=== PATIENT | female | born 1990 | race Caucasian/White ===

== ENCOUNTER 2020-12-05 10:24 | Emergency (ER) | payer OTHER, SELFPAY ==
[2020-12-05 10:29] VITALS: BP 137/85; PULSE 96; RESP 14; TEMP 36.9; O2SAT 99
--- NOTE | 2020-12-05 10:38 | DI.RAD.S_ITS ---
PROCEDURE: XR HAND RT MIN 3V INDICATIONS: can do combined- dog bite to right wrist and hand, 4th finge TECHNIQUE: 3 views of the hand(s) acquired. COMPARISON: None. FINDINGS: Bones: No fractures or dislocations. Carpal bones are normally aligned. No suspicious bony lesions. Soft tissues: No suspicious soft tissue calcifications. IMPRESSION: No gross acute right hand fracture or dislocation. No radiopaque foreign body is seen. Dictated by: Parviz Martinez M.D. on 12/05/2020 at 11:21 Approved by: Parviz Martinez M.D. on 12/05/2020 at 11:26
--- NOTE | 2020-12-05 11:38 | ED.ANIMALBIT ---
HPI - Animal Bite General Chief Complaint: Animal Bite Stated Complaint: bit by dog today, right hand Time Seen by Provider: 12/05/20 11:30 History of Present Illness HPI narrative: 30-year-old female nonsmoker with noncontributory medical history presents with a chief complaint of a dog bite on her right hand. She has multiple small punctures that were suffered as a consequence of trying to help her dog but was choking on some dog food. She reached into his mouth and startle him and he bit down. She has got full range of motion and strength but does have some tingling in her fingers. Her tetanus will need to be updated. The dog has been acting appropriate otherwise and shots are up-to-date Related Data Previous Rx's Medication Instructions Recorded doxycycline hyclate 100 mg tablet 100 mg PO BID #20 tab 12/05/20 metronidazole 500 mg tablet 500 mg PO Q8H #30 tab 12/05/20 Allergies Allergy/AdvReac Type Severity Reaction Status Date / Time amoxicillin Allergy Unknown Verified 12/05/20 10:34 Review of Systems Review of Systems Narrative: GENERAL: Denies chills, fatigue, malaise, fever, sweats. HEENT: Denies sinus pain, ear pain, sore throat, difficulty swallowing, dizziness. RESPIRATORY: Denies dyspnea, cough, wheezing, hemoptysis, sputum. CARDIOVASCULAR: Denies chest pain, palpitations, orthopnea, edema, GASTROINTESTINAL: Denies nausea, vomiting, abdominal pain, diarrhea, constipation, melena. : Denies dysuria, frequency, incontinence, hematuria, urinary retention. MUSCULOSKELETAL: See HPI SKIN: See HPI NEUROLOGIC: Denies weakness, headache, numbness, change in speech, confusion, seizures, incoordination. PSYCHIATRIC: No concerning psychosocial issues. 12 point review of systems is negative except for those stated above Patient History Social History Smoking Status: Never smoker Smoking Status: Never smoker alcohol intake frequency: 0-2 drinks per day Substance Use Type: does not use Exam Narrative Exam Narrative: GEN: AOx3 and in mild distress EYES: Pupils are equal, round, and reactive to light and accommodation. Extraoccular muscles are intact bilaterally. There is no subconjunctival hemorrhage or exudate. CHEST: Lungs are clear to auscultation bilaterally and free of wheezes, rales, or rhonchi. Heart rate is regular rhythm, there are no murmurs, clicks, rubs, or gallops. There is no chest wall tenderness. ABD: Abdomen is soft and nontender. There is no guarding or rebound. Bowel sounds are normal in all 4 quadrants. There is no mass or organomegaly. EXT: Full painless ROM of all extremities with no loss of sensation or strength. SKIN: 3 small 0.25 cm punctures, 1 overlying the dorsum of the wrist, 1 on the thenar eminence and 1, the smallest of which on the dorsum of R ring finger proximal to PIP. No active bleeding. Warm, pink, and dry. No erythema or rash Initial Vital Signs Initial Vital Signs: Vital Signs Temperature 98.4 F 12/05/20 10:29 Pulse Rate 96 H 12/05/20 10:29 Respiratory Rate 14 12/05/20 10:29 Blood Pressure 137/85 12/05/20 10:29 Pulse Oximetry 99 12/05/20 10:29 Course Orders Ordered: ED Orders 12/05/20 10:38 XR wrist RT min 3V Stat Discontinued Medications Diphtheria/Tetanus/Acell Pertussis (Tet,Diph,Pertuss(Acell),Vac/Pf 0.5 Ml Syringe) 0.5 ml IM .ONCE ONE Stop: 12/05/20 11:38 Last Admin: 12/05/20 11:56 Dose: 0.5 ml Documented by: Lidocaine/Sodium Bicarbonate (Lido 1%/Sod Bicarb 8.4% (10ml) 10 Ml Syringe) 10 ml INJ NOW ONE Stop: 12/05/20 11:51 Last Admin: 12/05/20 11:56 Dose: 10 ml Documented by: Vital Signs Vital signs: Vital Signs - 8 hr 12/05/20 10:29 Temperature 98.4 F Pulse Rate 96 H Respiratory Rate 14 Blood Pressure 137/85 Pulse Oximetry 99 MDM - Animal Bite Imaging Data Extremity x-ray #1: Radiologist's Impression: [address] [id number] ReportSigned Patient: Saloni Hoover JMR#: [id number]: 1990Acct:[id number]/Sex: 30 / FDate of Service: 12/05/20Loc: EDAccession Number: [id number] Procedure: XR wrist RT min 3V Ordering Provider: Godfrey Rodriguez D.O. PROCEDURE: XR HAND RT MIN 3V INDICATIONS: can do combined- dog bite to right wrist and hand, 4th finge TECHNIQUE: 3 views of the hand(s) acquired. COMPARISON: None. FINDINGS: Bones: No fractures or dislocations. Carpal bones are normally aligned. No suspicious bony lesions. Soft tissues: No suspicious soft tissue calcifications. IMPRESSION: No gross acute right hand fracture or dislocation. No radiopaque foreign body is seen. Dictated by: Parviz Martinez M.D. on 12/05/2020 at 11:21 Approved by: Parviz Martinez M.D. on 12/05/2020 at 11:26 Discharge Plan Departure Patient Disposition: Home Clinical Impression: Bite by animal Instructions: DI for Animal Bites Activity Restrictions/Additional Instructions: *You have been diagnosed with [dog bite with laceration] *What to do: *Please continue to take your regular medications as directed. [x ] New medication prescriptions sent to your pharmacy: [[facility]] [ ] New medication written as a paper prescription [ ] No new medications given *Please follow up with your primary care provider in 2-3 days, call for an appointment. Let them know you were seen in the Emergency Department and that we ask that you be seen in follow up. We will electronically transmit a record of today's note if your PCP is in our system *If you do not have a primary care provider please contact the [facility] Resource line at [phone]. They will ask some questions about your medical history and help get you set up with a doctor in the community. *Return to Emergency Department if you should have any new, worsening or concerning symptoms, such as [fever greater than 101 F, shaking chills, worsening pain, persistent vomiting or other bothersome symptoms] Prescriptions: New doxycycline hyclate 100 mg tablet 100 mg PO BID Qty: 20 RF: 0 metronidazole 500 mg tablet 500 mg PO Q8H Qty: 30 RF: 0
[2020-12-05] MEDS: TET,DIPH,PERTUSS(ACELL),VAC/PF 0.5 ML SYRINGE IM (11:56)
[2020-12-05] MEDS: LIDO 1%/SOD BICARB 8.4% (10ML) 10 ML SYRINGE INJ (11:56)
== END 2020-12-05 12:15 | disposition home or self-care (01) ==
PROVIDERS: Emergency Provider Emergency Medicine
DX: S61.451A Open bite of right hand, initial encounter (principal); W54.0XXA Bitten by dog, initial encounter; Z23 Encounter for immunization
CPT/HCPCS: 73110; 90471; 99283; 99284; 90715

== ENCOUNTER 2022-09-13 18:00 | Emergency (ER) | payer BC, SELFPAY ==
[2022-09-13 18:34] VITALS: BP 144/93; PULSE 73; RESP 16; TEMP 36.9; O2SAT 100; BMI 32.6
[2022-09-13 18:50] LABS: Add Manual Diff / Slide Review NO; Basophils Absolute Auto 100 /uL (0-100); Basophils Percent Auto 0.8 % (0-2); Eosinophils Absolute Auto 200 /uL (0-450); Eosinophils Percent Auto 2.6 % (2-4); Hematocrit 36.4 % (36-46); Hemoglobin 12.3 g/dL (12.0-16.0); Lymphocytes Absolute Auto 3800 /uL (1100-4500); Mean Corpuscular HGB Conc 33.9 % (30-36); Mean Corpuscular Hemoglobin 30.4 PG (26-34); Mean Corpuscular Volume 89.8 fL (80-100); Monocytes Absolute Auto 400 /uL (0-900); Monocytes Percent Auto 4.9 % (3-14); Neutrophils Absolute Auto 4300 /uL (1500-7000); Neutrophils Percent Auto 48.7 % (50-75); Platelet Count 238 X10^3/uL (150-400); Red Blood Cell Count 4.05 X10^6/uL (4.0-5.2); Red Cell Distribution Width 12.3 % (11.6-14.8); White Blood Cell Count 8.9 X10^3/uL (4.5-11.0)
[2022-09-13 19:20] LABS: BUN Creatinine Ratio 15.9 (6-22); Blood Urea Nitrogen 13 mg/dL (7-17); Calcium 8.9 mg/dL (8.4-10.2); Carbon Dioxide 26 mmol/L (22-32); Chloride 104 mmol/L (98-107); Estimated Glomerular Filt Rate > 60 mL/min (>60); Glucose 104 mg/dL (70-100); HEMOLYSIS < 15 (0-50); Potassium 3.8 mmol/L (3.4-5.1); Sodium 138 mmol/L (137-145)
[2022-09-13 21:14] VITALS: PULSE 64; O2SAT 96
[2022-09-13 21:16] VITALS: BP 115/85; PULSE 66; RESP 16; O2SAT 100
[2022-09-13 22:29] VITALS: BP 126/70; PULSE 89; O2SAT 100
[2022-09-13 22:30] VITALS: RESP 18; O2SAT 99
== END 2022-09-13 22:44 | disposition left against medical advice (07) ==
PROVIDERS: Emergency Provider Emergency Medicine
DX: N93.9 Abnormal uterine and vaginal bleeding, unspecified (principal)
CPT/HCPCS: 36415; 80048; 81025; 85025; 99283

== ENCOUNTER → 2023-05-08 13:39 | Outpatient (CLI) | payer BC, MEDICAID, OTHER, SELFPAY ==
[2023-05-08 14:40] LABS: Influenza A - CEPHEID Flu A NEGATIVE (NEGATIVE); Influenza B - CEPHEID Flu B NEGATIVE (NEGATIVE); Respiratory Syncytial Virus Negative (Negative)
[2023-05-08 14:42] LABS: COVID-19 CEPHEID 4-PLEX PCR Negative (Negative)
== END ==
PROVIDERS: PCP Nurse Practitioner Family; Visit Provider Nurse Practitioner Family
DX: R05.1 Acute cough (principal)
CPT/HCPCS: 0241U

== ENCOUNTER → 2023-05-08 14:03 | Outpatient (CLI) | payer OTHER, MEDICAID, SELFPAY ==
--- NOTE | 2023-05-08 14:09 | DI.RAD.S_ITS ---
PROCEDURE: XR CHEST 2V INDICATIONS: Cough TECHNIQUE: 2 views of the chest were acquired. COMPARISON: None. FINDINGS: Surgical changes and devices: None. Lungs and pleura: Right mid lung field opacity. No pleural effusions or pneumothorax. Mediastinum: Mediastinal contours are normal. Heart size is normal. Bones and chest wall: No suspicious bony abnormalities. Soft tissues appear unremarkable. IMPRESSION: Right mid lung field opacity consistent with pneumonia. Recommend follow-up radiograph to resolution. Dictated by: Vince Neely M.D. on 05/08/2023 at 15:35 Approved by: Vince Neely M.D. on 05/08/2023 at 15:35
== END ==
PROVIDERS: PCP Nurse Practitioner Family; Referring Provider Nurse Practitioner Family; Visit Provider Nurse Practitioner Family
DX: R05.9 Cough, unspecified (principal)
CPT/HCPCS: 0241U; 71046

== ENCOUNTER → 2023-07-31 22:06 | Outpatient (ROUT) | payer OTHER, MEDICAID, SELFPAY ==
[2023-08-07 12:43] LABS: Percent Free Testosterone 2.42 % (0.50-2.80); Testosterone Free 0.61 ng/dL (0.10-0.85); Testosterone Total 25.3 ng/dL (10.0-55.0)
[2023-08-07 21:36] LABS: Anti Mullerian Hormone 3.97 ng/mL (.)
== END ==
PROVIDERS: PCP Nurse Practitioner Family; Visit Provider Advanced Practice Midwife
DX: E28.2 Polycystic ovarian syndrome (principal); Z13.228 Encounter for screening for other metabolic disorders
CPT/HCPCS: 82397; 84402; 84403

== ENCOUNTER → 2024-02-24 11:04 | Outpatient (CLI) | payer MEDICAID, OTHER, SELFPAY ==
--- NOTE | 2024-02-24 | DI.US.S_ITS ---
PROCEDURE: US OB >= 14 WEEKS FETUS INDICATIONS: ANATOMY SCAN OUTSIDE/PRIOR DATING DATA: Last menstrual period (LMP): 09/17/2023. LMP-based estimated date of delivery (CLARKE): 06/23/2024. The calculations are made using the clinical CLARKE of 07/04/2024. TECHNIQUE: Real-time scanning was performed of the fetus, with image documentation and biometric measurements. Endovaginal scanning: Not performed COMPARISON: None. FINDINGS: General: A single living intrauterine gestation is present. Presentation: Vertex. Placenta: Placental position is posterior, without previa. Amniotic fluid index: 13.7 cm, normal range is 5-24 cm. Single deepest vertical pocket is 4.4 cm. heart rate: 147 beats per minute. Maternal cervical canal: 4.9 cm long. Normal lower limit is 2.5 cm. biometrics: Biparietal diameter: 5.2 cm, 21 weeks 5 days Head circumference: 18.6 cm, 20 weeks 6 days Abdominal circumference: 17.6 cm, 22 weeks 4 days Femur length: 3.9 cm, 22 weeks 4 days Clinically estimated gestational age: 21 weeks 2 days Composite gestational age from present scan: 22 weeks 0 days Estimated weight and percentile: 495 g, 92 percentile Anatomic survey: Neuro: Ventricles are non-dilated at less than 10 mm. Cisterna magna is normal at 3-11 mm. Cerebellum is normal in size and morphology. Nuchal skin fold: Normal at less than 6 mm between 14-21 weeks gestational age. Face: Nose and lips, facial profile are normal. Spine: No evidence for spina bifida. Heart: 4-chambered heart is present, with normal ventricular outflow tracts. Diaphragm: Diaphragm is intact. Stomach: Left-sided stomach is present. Kidneys: No hydronephrosis. Normal is less than 5 mm in 2nd trimester, less than 7 mm in 3rd trimester. Cord: 3-vessel cord has orthotopic insertion. Bladder: Normal in size. Extremities: All 4 extremities identified. IMPRESSION: 1. Caldera living intrauterine at 22 weeks 0 days based on today's ultrasound. Fetus is in the 92 percentile for weight. 2. Normal placenta and amniotic fluid. 3. Normal and complete anatomic survey. We strive to produce accurate, complete, and clear reports of imaging services. To assist us in improving patient care, this report was composed using standard report templates and voice recognition software. Therefore, it may contain abnormal punctuation, insertions and/or omissions. Occasional wrong-word or sound-alike substitutions may occur. Though we review the report and make efforts to correct it, we do recommend that the report be read carefully in proper context to recognize any text inaccuracies. Dictated by: Angelito Perez M.D. on 02/24/2024 at 23:24 Approved by: Angelito Perez M.D. on 02/24/2024 at 23:28
== END ==
PROVIDERS: PCP Nurse Practitioner Family; Referring Provider Nurse Practitioner Obstetrics & Gynecology; Visit Provider Nurse Practitioner Obstetrics & Gynecology
DX: Z34.92 Encounter for supervision of normal pregnancy, unspecified, second trimester (principal); Z3A.22 22 weeks gestation of pregnancy
CPT/HCPCS: 76811

== ENCOUNTER 2024-06-26 12:02 | Outpatient (CLI) | payer BC, SELFPAY ==
--- NOTE | 2024-06-26 13:16 | PM.OBTRLD ---
Visit Information Visit Information Date of evaluation: 06/26/24 Primary OB Provider: Gracy New On-call OB Provider: Gracy New Reason for Evaluation: Yes non-stress test non-stress test reason: hypertension/pre-eclampsia Comments/Additional reasons for admission: 33YO @ 38wks 6 days by LMP concordant with 7wk US referred for clinic for evaluation of elevated BP in clinic at routine OB appointment. +FM. No cramping, vaginal bleeding, leaking of fluid, vision changes, RUQ pain or increased edema. A mild headache, typical for her is developing right now, but she hasn't eaten or taken anything for it. Vital Signs Vital Signs: Serial BPs: 139/82, 125/80, 128/81, 118/78, 118/78. 113/75 HR 85, T 37.1C Temporal PFSH Medical History (Updated 06/26/24 @ 15:09 by Gracy New CNM) Depression GERD (gastroesophageal reflux disease) Family History (Updated 06/26/24 @ 13:25 by Gracy New CNM) Mother Cancer Social History Smoking Status: Never smoker Review of Systems Review of Systems ROS: Yes All systems reviewed with the patient and are negative except as otherwise documented Exam Vital Signs (past 8 hours): see above Chest Chest: normal inspection of the chest Resp Effort & Inspection: normal respiratory effort and able to speak in complete sentences Cardio Palpation: normal PMI Rate: regular rate Rhythm: regular rhythm Presentation: vertex Objective Labs 06/26/24 13:14 06/26/24 13:14 Evaluation Evaluation Baseline heart rate: 135 Variability: Moderate (11-25) monitor accelerations: Present Monitor Decelerations: Absent Contraction Frequency (minutes): 4 Uterine Contraction Intensity: Mild (not felt by Saloni) Category of Tracing: Reactive Comments: CE Deferrd, not inlabor Diagnosis, Plan/Disposition Final Diagnosis (1) Elevated blood pressure reading without diagnosis of hypertension: Status: Acute (2) Proteinuria affecting in third trimester: Status: Acute Plan/Disposition Plan: Likely brewing preeclampsia, but given normotensive BPs today, recommend close monitoring. Discharge to home with routine precautions. RTC in 3 days for close interval BP check. OB Disposition: home
[2024-06-26 13:47] LABS: Add Manual Diff / Slide Review NO; Basophils Absolute Auto 0 /uL (0-100); Basophils Percent Auto 0.2 % (0-2); Eosinophils Absolute Auto 100 /uL (0-450); Eosinophils Percent Auto 0.7 % (2-4); Hematocrit 32.3 % (36-46); Hemoglobin 10.7 g/dL (12.0-16.0); Lymphocytes Absolute Auto 2300 /uL (1100-4500); Lymphocytes Percent Auto 19.9 % (25-40); Mean Corpuscular HGB Conc 33.1 % (30-36); Mean Corpuscular Hemoglobin 29.5 PG (26-34); Mean Corpuscular Volume 88.9 fL (80-100); Monocytes Absolute Auto 700 /uL (0-900); Monocytes Percent Auto 6.1 % (3-14); Neutrophils Absolute Auto 8500 /uL (1500-7000); Neutrophils Percent Auto 73.1 % (50-75); Platelet Count 177 X10^3/uL (150-400); Red Blood Cell Count 3.63 X10^6/uL (4.0-5.2); White Blood Cell Count 11.7 X10^3/uL (4.5-11.0)
[2024-06-26 14:27] LABS: Alanine Aminotransferase 36 IU/L (<35); Albumin 3.6 g/dL (3.5-5.0); Albumin Globulin Ratio 1.2 (1.0-2.8); Alkaline Phosphatase 135 U/L (38-126); Aspartate Aminotransferase 36 IU/L (14-36); BUN Creatinine Ratio 16.7 (6-22); Bilirubin Total 0.3 mg/dL (0.2-1.3); Blood Urea Nitrogen 11 mg/dL (7-17); Calcium 9.8 mg/dL (8.4-10.2); Carbon Dioxide 19 mmol/L (22-32); Chloride 107 mmol/L (98-107); Estimated Glomerular Filt Rate > 60 mL/min (>60); Glucose 86 mg/dL (70-100); HEMOLYSIS < 15 (0-50); Potassium 4.3 mmol/L (3.4-5.1); Sodium 133 mmol/L (137-145); Total Protein 6.6 g/dL (6.3-8.2); Uric Acid 4.4 mg/dL (2.5-6.2)
[2024-06-26 15:01] LABS: Appearance Urine UA SL CLOUDY; Bilirubin Urine UA NEGATIVE (NEGATIVE); Color Urine UA YELLOW; Glucose Urine UA NEGATIVE (Negative); Ketones Urine UA NEGATIVE (NEGATIVE); Leukocyte Esterase Urine UA NEGATIVE (NEGATIVE); Nitrite Urine UA NEGATIVE (Negative); Occult Blood Urine UA NEGATIVE (Negative); Protein Urine UA NEGATIVE (Negative); Urobilinogen Urine UA 0.2 E.U./dL (0.2)
[2024-06-26 15:04] LABS: Creatinine Urine Random 35.14 mg/dL; Protein (Total) Urine Random 17 mg/dL (0-12); Protein Creatinine Ratio Urine 0.48 GRAM/24H
== END 2024-06-26 14:00 | disposition home or self-care (01) ==
LOC: LABOR 12:33 → OB 06-29 07:09
PROVIDERS: Nurse Practitioner Obstetrics & Gynecology; Referring Provider Advanced Practice Midwife; Visit Provider Advanced Practice Midwife
DX: O12.13 Gestational proteinuria, third trimester (principal); O26.893 Other specified pregnancy related conditions, third trimester; R03.0 Elevated blood-pressure reading, without diagnosis of hypertension; Z3A.38 38 weeks gestation of pregnancy
CPT/HCPCS: 36415; 59025; 80053; 81003; 84550; 85025; G0378; G0379

== ENCOUNTER 2024-06-28 13:20 | Inpatient (IN) | payer BC, SELFPAY ==
[2024-06-28 14:05] LABS: Add Manual Diff / Slide Review NO; Basophils Absolute Auto 100 /uL (0-100); Basophils Percent Auto 0.9 % (0-2); Eosinophils Absolute Auto 100 /uL (0-450); Eosinophils Percent Auto 0.9 % (2-4); Hematocrit 32.4 % (36-46); Hemoglobin 10.6 g/dL (12.0-16.0); Lymphocytes Absolute Auto 2400 /uL (1100-4500); Mean Corpuscular HGB Conc 32.8 % (30-36); Mean Corpuscular Hemoglobin 29.2 PG (26-34); Mean Corpuscular Volume 88.8 fL (80-100); Monocytes Absolute Auto 800 /uL (0-900); Monocytes Percent Auto 6.2 % (3-14); Neutrophils Absolute Auto 9200 /uL (1500-7000); Platelet Count 187 X10^3/uL (150-400); Red Blood Cell Count 3.65 X10^6/uL (4.0-5.2); Red Cell Distribution Width 13.1 % (11.6-14.8); White Blood Cell Count 12.6 X10^3/uL (4.5-11.0)
[2024-06-28 14:10] LABS: Creatinine Urine Random 42.52 mg/dL; Protein (Total) Urine Random 14 mg/dL (0-12); Protein Creatinine Ratio Urine 0.32 GRAM/24H
[2024-06-28 14:17] VITALS: BP 132/90
[2024-06-28 14:17] LABS: Alanine Aminotransferase 34 IU/L (<35); Albumin 3.6 g/dL (3.5-5.0); Albumin Globulin Ratio 1.2 (1.0-2.8); Alkaline Phosphatase 135 U/L (38-126); Aspartate Aminotransferase 30 IU/L (14-36); BUN Creatinine Ratio 15.9 (6-22); Bilirubin Total 0.3 mg/dL (0.2-1.3); Blood Urea Nitrogen 11 mg/dL (7-17); Calcium 9.4 mg/dL (8.4-10.2); Carbon Dioxide 18 mmol/L (22-32); Chloride 107 mmol/L (98-107); Estimated Glomerular Filt Rate > 60 mL/min (>60); Glucose 106 mg/dL (70-100); HEMOLYSIS < 15 (0-50); Potassium 4.4 mmol/L (3.4-5.1); Sodium 133 mmol/L (137-145); Total Protein 6.6 g/dL (6.3-8.2); Uric Acid 4.5 mg/dL (2.5-6.2)
--- NOTE | 2024-06-28 14:57 | PM.OBHP.1 ---
OB HPI Date/Time Date of admission: 06/28/24 Date Patient Seen: 06/28/24 Time Patient Seen: 15:04 History of Present Condition Chief complaint: NST : 1 Para: 0 Narrative: Saloni Salinas is a 33 year old female @ 39wks 1 day by conception dating concordant with 9wk US presenting for evaluation of headache. Was seen in clinic 2 days ago for routine care with elevated BP, sent to triage with reactive NST and normotensive serial BPs, but labs significantly trending towards preeclampsia. Headache did not improve for 1 hour after taking 1 gram of Tylenol, but is improving now at the 2 hour liliana. +FM. Rare, mild cramping. No vaginal bleeding or leaking of fluid. Otherwise uncomplicated care with CNMs on low dose ASA for prophylaxis since 12 weeks EGA. Was planning low intervention . is present and supportive. Indications Indication for induction OB: gestational HTN/pre-eclampsia History of Present care: good care, initiated at week # (5), number of visits (12) and pounds weight gain (24) Dating criteria: based on 1st trimester US only (and conception date) Ultrasounds: normal 1st trimester US and normal mid trimester US Obstetrical complications: preeclampsia Medical complications: none Preadmission Labs Blood type: A (+) positive -: Antibody screen: negative, Cystic fibrosis screen: negative (Fragile X- intermediate, SMA- increased risk), GBS status: negative, HBsAG: negative, HIV: negative and RPR/VDLR: negative -: Chlamydia screen: not detected and Gonorrhea screen: not detected -: Rubella: immune and Varicella: immune HCT: 35.9 HCAB: negative Cell-free DNA: Negative x3 1 hr GTT: 92 Evaluation Evaluation Baseline heart rate: 140 Variability: Moderate (11-25) monitor accelerations: Present Monitor Decelerations: Absent Contraction Frequency (minutes): 0 Category of Tracing: Reactive Dilation (cm): 0 Effacement (%): 60 Dilation: Closed Effacement: 60-70% station: -3 Position of cervix: posterior Consistency: soft Coleman score: 4 PFSH Medical History Depression GERD (gastroesophageal reflux disease) Family History Mother Cancer Social History Smoking Status: Never smoker Meds Home Medications and Allergies Home Medications Medication Instructions Recorded Confirmed Type azithromycin 250 mg tablet See Rx Instructions PO .COMPLEX #6 05/08/23 Rx tabs benzonatate 200 mg capsule 200 mg PO BID PRN cough #28 caps 05/08/23 05/08/23 Rx Allergies Allergy/AdvReac Type Severity Reaction Status Date / Time amoxicillin Allergy Unknown Verified 05/08/23 13:35 Review of Systems Review of Systems ROS: Yes All systems reviewed with the patient and are negative except as otherwise documented OB Exam Vital signs Blood Pressure: 137/94 Pulse Rate: 96 Temperature: 98.1 F Resp Effort & Inspection: normal respiratory effort and able to speak in complete sentences Auscultation: clear to auscultation bilaterally Cardio Rate: regular rate Rhythm: regular rhythm Heart Sounds: S1 normal and S2 normal Presentation: vertex Objective Labs 06/28/24 13:50 06/28/24 13:50 Labs: Laboratory Results - last 24 hr 06/28/24 06/28/24 13:30 13:50 WBC 12.6 H RBC 3.65 L Hgb 10.6 L Hct 32.4 L MCV 88.8 MCH 29.2 MCHC 32.8 RDW 13.1 Plt Count 187 Neut % (Auto) 73.0 Lymph % (Auto) 19.0 L Candler % (Auto) 6.2 Eos % (Auto) 0.9 L Baso % (Auto) 0.9 Neut # (Auto) 9200 H Lymph # (Auto) 2400 Candler # (Auto) 800 Eos # (Auto) 100 Baso # (Auto) 100 Sodium 133 L Potassium 4.4 Chloride 107 Carbon Dioxide 18 L BUN 11 Creatinine 0.69 Estimated GFR > 60 BUN/Creatinine Ratio 15.9 Glucose 106 H Uric Acid 4.5 Calcium 9.4 Total Bilirubin 0.3 AST 30 ALT 34 Alkaline Phosphatase 135 H Total Protein 6.6 Albumin 3.6 Globulin 3.0 Albumin/Globulin Ratio 1.2 U Random Total Protein 14 H Urine Creatinine 42.52 Protein/Creatinin Ratio 0.32 Assessment and Plan Assessment and Plan Assessment and Plan narrative: A: Term nullipara IOL for preeclampsia w/o severe features Cervical ripening indicated No indication for antibiotics Cat I FHR P: Given resolution of headache while in triage and stable preeclampsia labs, recommend IOL for preeclampsia, but no indication for MgSO4 at this time. Discussed patient and plan of care with OB back-up/ who is in agreement. Admit, with routine labor orders. Cervical ripening with misoprostol x 2 doses, then reassess in 8 hours. Labor support, PRN. Time-Based Coding :: [TOTAL MINUTES] spent with patient and on the chart (including review of chart, obtaining history, exam, reviewing outside data, placing orders, documenting exam and treatment plan, and counseling patient) on [DATE].
[2024-06-28 15:25] VITALS: BP 137/94; PULSE 96; TEMP 36.7
[2024-06-28] MEDS: miSOPROStoL 25 MCG TABLET 50 MCG PO ×3 (15:30→23:29)
--- NOTE | 2024-06-28 23:08 | PM.OBPNLAB ---
Date/Time Date Patient Seen: 06/28/24 Time Patient Seen: 23:08 Pain Control Pain control: tolerating well Comments: Feeling mild, irregular cramping after 2 doses of misoprostol. Has been able to shower and get some rest. Headache completely resolved around 8pm. VS: BP 129/81, HR 83bpm, T 36.3C Temporal Pelvic Exam Dilation (cm): 0 Effacement (%): 60 station: -3 Amniotic membrane status: Intact Comments: CE deferred, not feeling significant contractions. Contractions Contraction frequency (min): 3 Contraction duration (min): 1 Contraction intensity: Mild Status status: Category l Heart Rate Baseline: 140 Monitor Accelerations: Present Monitor Decelerations: Absent Monitor Variability: Moderate Assessment and Plan Assessment: induction ongoing Plan: continuous present management Comments: Continue misoprostol x2 more doses overnight. Encourage rest. Reassess in AM. Will consider Matias balloon at next check, if further cervical ripening is indicated.
[2024-06-29] MEDS: miSOPROStoL 25 MCG TABLET 50 MCG PO ×2 (03:28→07:34)
--- NOTE | 2024-06-29 07:18 | PM.OBPNLAB ---
Date/Time Date Patient Seen: 06/29/24 Time Patient Seen: 07:19 Pain Control Pain control: tolerating well Comments: Saloni got some sleep overnight. Continuing to feel irregular, mild cramping. No vaginal bleeding or leaking of fluid. VS: BP 103/60, HR 74, T 36.3C Temporal. Pelvic Exam Dilation (cm): 0 Effacement (%): 75 station: -2 Amniotic membrane status: Intact Contractions Contraction frequency (min): 2 Contraction duration (min): 1 Contraction intensity: Mild Status status: Category l Heart Rate Baseline: 140 Monitor Accelerations: Present Monitor Decelerations: Absent Monitor Variability: Moderate Assessment and Plan Assessment: induction ongoing Plan: continuous present management Comments: Continue oral misoprostol x2 doses (6 total doses). Encouraged balanced rest and upright movement. Reassess in 4-8 hours or sooner, PRN.
--- NOTE | 2024-06-29 12:12 | PM.OBPNLAB ---
Date/Time Date Patient Seen: 06/29/24 Time Patient Seen: 12:12 Pain Control Pain control: tolerating well Comments: Woke up from nap around 1000. Notified RN at 1018 of sensation of two pops, leaking clear fluid. Quickly began feeling stronger contractions low in abdomen that are regular and painful, occurring every 2-5minutes. Considering an epidural soon. VS-BP 125/82, HR 81, Temp 36.2C, O2 sat 100% Pelvic Exam Dilation (cm): 2 Effacement (%): 90 station: -2 Amniotic membrane status: Leaking (clear) Contractions Monitor mode: External Contraction frequency (min): 2 (1-5) Contraction duration (min): 60 (60-70) Contraction pattern: Regular Contraction intensity: Moderate Status status: Category l Heart Rate Baseline: 140 Monitor Accelerations: Present Monitor Decelerations: Absent Monitor Variability: Moderate Assessment and Plan Assessment: induction ongoing (Approaching active labor) Plan: continuous present management Comments: IV start now, repeat preeclampsia panel w/IV start Epidural when requested Plan to recheck cervix in 4-6 hours or sooner, PRN.
[2024-06-29] MEDS: LACTATED RINGERS 1,000 ML 100 ML IV ×2 (12:34→15:40)
[2024-06-29 13:02] LABS: Add Manual Diff / Slide Review NO; Basophils Absolute Auto 0 /uL (0-100); Basophils Percent Auto 0.2 % (0-2); Eosinophils Absolute Auto 100 /uL (0-450); Eosinophils Percent Auto 0.7 % (2-4); Hematocrit 32.6 % (36-46); Hemoglobin 10.7 g/dL (12.0-16.0); Lymphocytes Absolute Auto 2100 /uL (1100-4500); Lymphocytes Percent Auto 13.9 % (25-40); Mean Corpuscular HGB Conc 32.9 % (30-36); Mean Corpuscular Hemoglobin 29.3 PG (26-34); Mean Corpuscular Volume 88.9 fL (80-100); Monocytes Absolute Auto 900 /uL (0-900); Monocytes Percent Auto 6.3 % (3-14); Neutrophils Absolute Auto 11600 /uL (1500-7000); Neutrophils Percent Auto 78.9 % (50-75); Platelet Count 163 X10^3/uL (150-400); Red Blood Cell Count 3.66 X10^6/uL (4.0-5.2); Red Cell Distribution Width 13.2 % (11.6-14.8); White Blood Cell Count 14.7 X10^3/uL (4.5-11.0)
[2024-06-29 13:08] LABS: Alanine Aminotransferase 34 IU/L (<35); Albumin 3.6 g/dL (3.5-5.0); Albumin Globulin Ratio 1.2 (1.0-2.8); Alkaline Phosphatase 157 U/L (38-126); Aspartate Aminotransferase 32 IU/L (14-36); BUN Creatinine Ratio 14.5 (6-22); Bilirubin Total 0.3 mg/dL (0.2-1.3); Blood Urea Nitrogen 10 mg/dL (7-17); Calcium 9.1 mg/dL (8.4-10.2); Carbon Dioxide 18 mmol/L (22-32); Chloride 108 mmol/L (98-107); Estimated Glomerular Filt Rate > 60 mL/min (>60); Glucose 89 mg/dL (70-100); HEMOLYSIS < 15 (0-50); Potassium 4.4 mmol/L (3.4-5.1); Sodium 134 mmol/L (137-145); Total Protein 6.6 g/dL (6.3-8.2); Uric Acid 4.5 mg/dL (2.5-6.2)
--- NOTE | 2024-06-29 13:29 | PM.AN.REGBLK ---
[facility] <Wandy Tsai CRNA - Last Filed: 06/30/24 12:11> Pre-procedure Procedure: Continuous Lumbar Epidural for L&D (CSE) PMH/ROS narrative: 33yr old with h/o obsity bmi 30, anxiety and gerd. Induction for pre E ASA Class: II Labs: Hct 32.6 % (36-46) L 06/29/24 12:36 Plt Count 163 X10^3/uL (150-400) 06/29/24 12:36 Medications: Current Medications Generic Name Dose Route Start Last Admin Trade Name Freq PRN Reason Stop Dose Admin Calcium Carbonate 1,000 mg 06/28/24 14:36 Calcium Carbonate 500 Mg Tab PO Q2HR PRN Dyspepsia Carboprost Tromethamine 250 mcg 06/28/24 14:36 Carboprost 250 Mcg/Ml Ampul IM Q90M PRN Bleeding Fentanyl 100 mcg 06/28/24 14:36 Fentanyl 100 Mcg/2 Ml Inj IV Q1H PRN Pain, Severe (7-10) Oxytocin/Lactated Ringer's 30 unit in 500 mls @ 200 mls/hr 06/28/24 14:36 Oxytocin Premix IV CONT PRN Bleeding Protocol Tranexamic Acid 1,000 mg/ 100 mls @ 600 mls/hr 06/28/24 14:36 Sodium Chloride IV NOW PRN Bleeding Oxytocin/Lactated Ringer's 30 unit in 500 mls @ 2 mls/hr 06/28/24 14:45 Oxytocin Premix IV TITRATE GENNA Protocol 2 MILLIUNIT/MIN Lidocaine HCl 20 ml 06/28/24 14:36 Lidocaine 1% 20 Ml INJ INTRA-OP PRN Post Delivery Methylergonovine Maleate 0.2 mg 06/28/24 14:36 Methylergonovine 0.2 Mg Tablet PO Q6HR PRN Heavy Bleeding Methylergonovine Maleate 0.2 mg 06/28/24 14:36 Methylergonovine 0.2 Mg/Ml Vial IM NOW PRN Bleeding Mineral Oil 30 ml 06/28/24 14:36 Mineral Oil 30 Ml Udc TOP PRN PRN Version Misoprostol 800 mcg 06/28/24 14:36 Misoprostol 200 Mcg Tablet WI NOW PRN Bleeding Misoprostol 400 mcg 06/28/24 14:36 Misoprostol 200 Mcg Tablet SL NOW PRN Bleeding Misoprostol 50 mcg 06/28/24 14:41 06/29/24 07:34 Misoprostol 25 Mcg Tablet PO 50 mcg Q4H PRN Administration cervical ripening Naloxone HCl 0.2 mg 06/28/24 14:36 Naloxone 0.4 Mg/Ml Vial IV Q2MIN PRN Opiate Reversal Ondansetron HCl 4 mg 06/28/24 14:36 Ondansetron 4 Mg/2 Ml Inj IV Q4HR PRN Nausea And Vomiting Oxytocin 10 unit 06/28/24 14:36 Oxytocin 10 Unit/Ml Vial IM NOW PRN Bleeding Allergies: Allergies Allergy/AdvReac Type Severity Reaction Status Date / Time amoxicillin Allergy Unknown Verified 05/08/23 13:35 Procedure Insertion date: 06/29/24 Insertion time: 13:09 Prep/Local: 1% lidocaine (chloroprep) Interspace: L3-4 then L4-5 Patient position: sitting Needle: 17 gauge Tuohy (27G W for CSE) Loss of resistance with: saline CESIA at (cm): 6 Catheter placed at SKIN (cm): 11 Catheter in SPACE (cm): 5 Sensory level: T8 Insertion: No CSF, No Blood, No Paresthesia with insertion, No Paresthesia with injection and No Test dose reaction Initial Medications TEST DOSE time: 13:10 BOLUS DOSE time: 13:07 BOLUS DOSE (mL): 1 BOLUS DOSE med: 0.25% bupivacaine (via 27g W (CSE)) Infusion INFUSION: 0.125% bupivacaine and with fentanyl 2 mcg/mL Initial rate (mL/hr): 10 Post-procedure Anesthesia date START: 06/29/24 Anesthesia time START: 12:47 <Stevenson Watkins DO - Last Filed: 06/30/24 07:01> Infusion Subsequent interventions: 20:40 5mL 0.25% bupiv for worsening pain with contractions; now on pitocin; /-2; increased rate to 12mL/h. -RC 22:24 increased L sided pain. Catheter at 8cm at skin (from 11). Catheter pulled and replaced 22:40. Prep/drape (iodine), L3-4, lido local 1%, CESIA touhy 5cm with saline, 27g Pencan through touhy +CSF, catheter easily fed to 11cm (6cm in space). Test dose negative at 22:44 (3mL 1.5% lido with epi), infusion as above at 10mL/h after 5mL clinician bolus at 22:53. -RC 03:00 5mL 0.25% bupiv, ready to push, rate to 12 -RC Post-procedure Anesthesia date END: 06/30/24 Anesthesia time END: 04:37 Post-procedure Anesthesia Assessment: Yes CV function: HR/BP stable, Yes Resp function: RR/sat/airway adequate, Yes Post-op hydration adequate, Yes Pain control adequate, Yes Nausea & vomiting absent, Yes Temperature > 36 C, Yes Mental status appropriate and No Anesthesia complications
--- NOTE | 2024-06-29 16:35 | PM.OBPNLAB ---
Date/Time Date Patient Seen: 06/29/24 Time Patient Seen: 16:35 Pain Control Pain control: epidural Comments: Good pain relief w/epidural not feeling contractions. Able to sleep. VS: BP 125/74, HR 93, 36.7C Pelvic Exam Dilation (cm): 3 Effacement (%): 90 station: -2 Amniotic membrane status: Leaking (clear) Comments: SROM 6 hours w/out signs of infection Contractions Monitor mode: External Contraction frequency (min): 3 (3-5) Contraction duration (min): 60 (60-80) Contraction pattern: Regular Contraction intensity: Moderate Status status: Category l Heart Rate Baseline: 145 Monitor Accelerations: Present Monitor Decelerations: Absent Monitor Variability: Moderate Assessment and Plan Assessment: induction ongoing Plan: begin patient augmentation (Pitocin per protocol) Comments: Reassess in 4-6hours or as needed
[2024-06-29] MEDS: OXYTOCIN PREMIX 30 UNIT/500 ML PLAST..BAG IV (16:40)
[2024-06-29] MEDS: NALBUPHINE 20 MG/ML AMPUL 5 MG IV (18:17)
[2024-06-29] MEDS: FENT 2MCG/ML BUPIV 0.125% EPI 200 MCG/100 ML PLAST..BAG 6 MCG EPIDURAL (19:42)
[2024-06-29] MEDS: ONDANSETRON 4 MG/2 ML INJ IV (20:00)
--- NOTE | 2024-06-29 20:53 | PM.OBPNLAB ---
Date/Time Date Patient Seen: 06/29/24 Time Patient Seen: 20:45 Pain Control Pain control: epidural Comments: Saloni had an increase in pain, moving into her back, with a sudden onset of nausea and vomiting. Increased bloody show was noted. CNM called by RN with request for an exam. Anesthesia was called at the same time for pain relief. VS: BP 124/75, HR 96bpm, T 98.0F Pelvic Exam Dilation (cm): 6 Effacement (%): 90 station: -2 Amniotic membrane status: Leaking (clear) Comments: bloody show noted Contractions Monitor mode: External Pitocin rate (mU/min): 6 Contraction frequency (min): 3 (2-4) Contraction duration (min): 1 Contraction pattern: Regular Contraction intensity: Strong/Firm Status status: Category l Heart Rate Baseline: 140 Monitor Accelerations: Present Monitor Decelerations: Early Monitor Variability: Moderate Assessment and Plan Assessment: active labor Plan: continuous present management Comments: Encourage position changes w/ peanut ball. Reassess in 4 hours or sooner, PRN
--- NOTE | 2024-06-30 01:14 | PM.OBPNLAB ---
Date/Time Date Patient Seen: 06/30/24 Time Patient Seen: 01:05 Pain Control Pain control: epidural Comments: Pain improved after epidural replaced. Feeling vaginal pressure. VS: BP 108/63, HR 80, Temp 36.2C Pelvic Exam Dilation (cm): 9 Effacement (%): 90 station: -2 Amniotic membrane status: Leaking (clear) Contractions Monitor mode: External Pitocin rate (mU/min): 10 Contraction frequency (min): 2 (2-5) Contraction duration (min): 60 (60-70) Contraction pattern: Regular Contraction intensity: Strong/Firm Status status: Category ll (overall reassuring) Heart Rate Baseline: 130 Monitor Accelerations: Present Monitor Decelerations: Early and Late Monitor Variability: Moderate Comments: Occasional late decelerations Assessment and Plan Assessment: induction ongoing Plan: continuous present management Comments: Recheck cervix in 4 hours.
[2024-06-30] MEDS: ONDANSETRON 4 MG/2 ML INJ IV (02:47)
[2024-06-30] MEDS: FENT 2MCG/ML BUPIV 0.125% EPI 200 MCG/100 ML PLAST..BAG 6 MCG EPIDURAL (02:54)
[2024-06-30] MEDS: KETOROLAC 30 MG/ML VIAL IV (05:14)
--- NOTE | 2024-06-30 05:15 | P.PCNOB_ITS ---
Events: Pre-Eclampsia and Labor Induction Labor & Delivery Delivery date: 06/30/24 Delivery Time: 04:27 Intrapartal Events: Mild Preeclampsia Cervical ripening method: per misoprostal protocol Induction method: per pitocin protocol Delivery monitor: external FHT Route of delivery: L&D Laceration Description: Perineal - 2nd Degree and Labial Delivery repair: chromic (3-0) Quantitative Blood Loss: 250 Anesthesia Type: Epidural Narrative: 33yo admitted for IOL for Pre Eclampsia. She received 5 doses cytotec, resulting in SROM clear fluid at 1017 on 06/29/24. Epidural placed at Saloni's request. Pitocin augmentation started w/ max dose 10mu/min. FHT's primarily category I throughout labor. Epidural replaced prior to second stage which began at 0317. Coaching and strong maternal efforts led to NSVB of apparently LGA vigorous male in ANDREW position. There was no nuchal cord and the shoulders delivered without additional maneuvers. [place] was placed on maternal abdomen for drying and skin to skin. Apgars 9 and 9. Remaining 30u pitocin in 500ml LR increased to 333ml/hr for AMTSL. Cord clamped by SNM and FOB cut cord after cessation of pulsation. Cord blood collected. Apparently intact placenta, membranes and 3VC delivered with one maternal push via Schultze. Fundus immediately firm and bleeding minimal. First degree left inner labial lac near clitoral mccauley and second degree perineal repaired w/ 3-0 chromic in the usual fashion, under adequate epidural anesthesia. QBL 250mL. Both mother and baby stabel and skin to skin as I left the room. Baby 1: gender: Male Presentation: vertex Position: Left Occiput Anterior Placenta delivery description: Spontaneous and Normal Configuration Cord Vessel Description: 3 Vessels score (1 min): 9 score (5 min): 9 weight: 4.155 kg Plan for aftercare: Routine care (BP monitoring x at least 24 hours)
[2024-06-30] MEDS: DERMOPLAST SPRAY 20% 60 ML 1 SPRAY TOP (07:27)
[2024-06-30] MEDS: WITCH HAZEL/GLYCERIN PADS 1 EACH TOP (07:27)
[2024-06-30] MEDS: ACETAMINOPHEN 325 MG TABLET 650 MG PO ×2 (12:47→18:39)
[2024-06-30] MEDS: DOCUSATE 100 MG CAPSULE PO (12:47)
[2024-07-01] MEDS: ACETAMINOPHEN 325 MG TABLET 650 MG PO ×4 (00:40→15:49)
[2024-07-01] MEDS: WITCH HAZEL/GLYCERIN PADS 1 EACH TOP ×2 (07:39→13:43)
--- NOTE | 2024-07-01 10:01 | PM.OBDS.1 ---
Discharge Providers Provider Date of admission: 06/28/24 13:20 Discharge Date: 07/01/24 Consults: 07/01/24 05:10 Consult to Plate Painter Apprentice Routine Comment: Discharge provider: Aleksandra Guy CNM, ARNP Summary Hospital Course Date Patient Seen: 07/01/24 Time Patient Seen: 10:01 Diagnoses: O80, 070.1 Hospital Course: 33yo now was admitted to for pre eclampsia IOL, labored w/epidural, NSVB of 9#2oz baby boy, 1st degree labial and 2nd degree perineal lac. Voiding without difficultly. Bleeding light no clotts. Pain in tailbone using ice w/some relief. No c/o headache, visual disturbances or epigastric pain B/P since delivery. VS: 108/72, HR 77, RR 18, Temp 97.6F temporal Peripartum Data Delivery Method: Natural Vaginal Laceration Description: Perineal - 2nd Degree and Labial (1st degree) Procedures: perineal and labial repairs [place] 1: Gender: Male Disposition of : home Discharge Diagnosis (1) (normal spontaneous vaginal delivery): Status: Acute (2) Second degree laceration of perineum, delivered, current hospitalization: Status: Acute (3) Mother currently breast-feeding: Status: Acute (4) Pre-eclampsia affecting with pre-existing hypertension, delivered, current hospitalization: Status: Acute Problem Details: Follow up in 3 days for BP check in office Status at Discharge Cognitive/behavioral status at discharge: oriented and calm Functional status at discharge: independent ambulation Overall status at discharge: patient is progressing back to baseline Time Spent with Patient Time attestation: Total time spent providing and/or coordinating discharge services: Time spent: Less than 30 minutes Specific discharge activities: discharge teaching Objective Labs 07/01/24 11:25 07/01/24 11:25 Exam Other: Fundus firm at U-2, midline. Lochia scant Perineum with 1st degree laceration, minimal edema Neuro DTR's: Rt Patellar: 2+ and Lt Patellar: 2+ Discharge Plan Discharge Plan Patient Disposition: Home Discharge orders & Medications Prescriptions: Continued No Known Home Medications Follow up/Referrals: Aleksandra Guy CNM, ARNP [Advanced Mixer Runner] - 3-5 Days (and 2 and 6 weeks as scheduled in e-mail with [facility]) Diet/Activity/Treatments Diet: Diet as Tolerated and Regular Diet comment: increase fiber and fluid Activity: Rest for two weeks Cold/Heat Therapy: as needed Skin/Wound/Dressing Care Skin care: usual care Report to your healthcare provider any signs of infection, such as:: increased pain, unusual drainage and unusual redness Visit Report/Discharge Packet Instructions: DI for Labor and Delivery, Vaginal Stand Alone Forms: Patient Portal/API, Stroke Signs & Symptoms
[2024-07-01] MEDS: IBUPROFEN SUSP 100 MG/5 ML UDC 600 MG PO (10:33)
[2024-07-01] MEDS: DOCUSATE 100 MG CAPSULE PO (10:40)
[2024-07-01 12:00] LABS: Add Manual Diff / Slide Review NO; Basophils Absolute Auto 100 /uL (0-100); Basophils Percent Auto 0.4 % (0-2); Eosinophils Absolute Auto 200 /uL (0-450); Eosinophils Percent Auto 1.6 % (2-4); Hematocrit 30.8 % (36-46); Hemoglobin 10.2 g/dL (12.0-16.0); Lymphocytes Absolute Auto 1900 /uL (1100-4500); Lymphocytes Percent Auto 14.4 % (25-40); Mean Corpuscular HGB Conc 33.2 % (30-36); Mean Corpuscular Hemoglobin 29.6 PG (26-34); Mean Corpuscular Volume 89.1 fL (80-100); Monocytes Absolute Auto 800 /uL (0-900); Monocytes Percent Auto 5.7 % (3-14); Neutrophils Absolute Auto 10600 /uL (1500-7000); Neutrophils Percent Auto 77.9 % (50-75); Platelet Count 193 X10^3/uL (150-400); Red Blood Cell Count 3.45 X10^6/uL (4.0-5.2); Red Cell Distribution Width 13.5 % (11.6-14.8); White Blood Cell Count 13.5 X10^3/uL (4.5-11.0)
[2024-07-01 12:11] LABS: Alanine Aminotransferase 32 IU/L (<35); Albumin 3.1 g/dL (3.5-5.0); Albumin Globulin Ratio 1.1 (1.0-2.8); Alkaline Phosphatase 107 U/L (38-126); Aspartate Aminotransferase 33 IU/L (14-36); BUN Creatinine Ratio 13.9 (6-22); Bilirubin Total 0.2 mg/dL (0.2-1.3); Blood Urea Nitrogen 10 mg/dL (7-17); Calcium 9.1 mg/dL (8.4-10.2); Carbon Dioxide 20 mmol/L (22-32); Chloride 109 mmol/L (98-107); Estimated Glomerular Filt Rate > 60 mL/min (>60); Globulin 2.8 g/dL (1.7-4.1); Glucose 98 mg/dL (70-100); HEMOLYSIS < 15 (0-50); Potassium 4.2 mmol/L (3.4-5.1); Sodium 136 mmol/L (137-145); Total Protein 5.9 g/dL (6.3-8.2)
[2024-07-01] MEDS: DERMOPLAST SPRAY 20% 60 ML 1 SPRAY TOP (13:43)
[2024-07-01] MEDS: MAGNESIUM HYDROXIDE 30 ML UDC PO (13:43)
== END 2024-07-01 15:50 | disposition home or self-care (01) | DRG 806 ==
PROVIDERS: Advanced Practice Midwife; Admitting Provider Nurse Practitioner Obstetrics & Gynecology; Referring Provider Nurse Practitioner Obstetrics & Gynecology; Visit Provider Nurse Practitioner Obstetrics & Gynecology
DX: O14.04 Mild to moderate pre-eclampsia, complicating childbirth (principal); O12.13 Gestational proteinuria, third trimester; Z37.0 Single live birth; Z3A.39 39 weeks gestation of pregnancy; O76 Abnormality in fetal heart rate and rhythm complicating labor and delivery; O70.1 Second degree perineal laceration during delivery; O70.0 First degree perineal laceration during delivery; O26.893 Other specified pregnancy related conditions, third trimester; R03.0 Elevated blood-pressure reading, without diagnosis of hypertension; Z3A.38 38 weeks gestation of pregnancy
CPT/HCPCS: 36415; 59025; 59050; 59200; 80053; 81003; 84112; 84550; 85025; 86850; 86900; 86901; G0379; J1885; J2300; J2405; J2590

== ENCOUNTER 2024-12-16 16:15 | Outpatient (RCR) | payer BC, SELFPAY ==
--- NOTE | 2024-11-05 17:28 | PT.OIE ---
Current Diagnoses Pain in right foot (11/04/24) Past Medical History (Last Updated 07/01/24 @ 10:49 by Aleksandra Guy, BK, FINANCIAL REPORTING ANALYST) Depression GERD (gastroesophageal reflux disease) Pre-eclampsia affecting with pre-existing hypertension, delivered, current hospitalization Visit Care Team Role Provider Type Kenya Garrison MD Attending Provider Physician Family Provider Primary Care Provider Referring Provider Specialty: Family Practice Obstetrics Address: [address] [place] [address], [facility] Email: [email or web address] Physical Therapy Initial Evaluation PT-OP-A Visit Information Start: 11/05/24 11:23 Freq: Status: Active Protocol: Document 11/04/24 17:00 KW (Rec: 11/05/24 17:28 KW Laptop) Out-Patient Physical Therapy Visit Information Visit Information Visit Type Initial Evaluation Visit Start Time 16:15 Visit Stop Time 17:00 Visit Number 1 Evaluation Information Evaluation Date 11/04/24 Precautions Precautions none PT-OP-B Current Condition Start: 11/05/24 11:23 Freq: Status: Active Protocol: Document 11/04/24 17:00 KW (Rec: 11/05/24 17:28 KW Laptop) Current Condition History of Current Condition Onset Date july 2024 Current Complaints R heel pain History of Current R heel pain onset of July, approx 2 weeks post- Condition , first baby. Baby is now 4 mo old, 20#, holds him on R hip, feels her CORE is week so she doesn't feel she has the best posture. Treatment Goals Patient/Caregiver to get back to wt lifting and martial arts, currently Goals walking every morning with spouse and baby, reports it feels good to move. Prefers to go barefoot, minimalist shoes PT-OP-C Subjective Start: 11/05/24 11:23 Freq: Status: Active Protocol: Document 11/04/24 17:00 KW (Rec: 11/05/24 17:28 KW Laptop) Patient Questionnaires Lower Extremity Functional Scale LEFS Score 69 LEFS Impairment 1 to 19% Impaired (Score 63-79) OP-PT Pain Assessment Location right ankle Pain Location R heel/ankle Details Intensity 3 Scale Used Numeric (0 - 10) Description Aching,Burning,Pinching,Sharp Frequency Intermittent Pain Aggravating Position,Changing Position,ADL's,Activity,Exercise, Factors Standing,Walking,Stair Climbing,Bending,Lifting Pain Alleviating Inactivity,Position Factors PT-OP-D Balance Start: 11/05/24 11:23 Freq: Status: Active Protocol: Document 11/04/24 17:00 KW (Rec: 11/05/24 17:28 KW Laptop) OP-PT Balance Assessment Sitting Balance Static Sitting Normal Balance Ability Dynamic Sitting Normal Balance Ability Bass Fall Scale Copyright Permission PT-OP-E Functional Tests Start: 11/05/24 11:23 Freq: Status: Active Protocol: Document 11/04/24 17:00 KW (Rec: 11/05/24 17:28 KW Laptop) Functional Tests Single Leg Squat Test Score 10 PT-OP-F Manual Assessment Start: 11/05/24 11:23 Freq: Status: Active Protocol: Document 11/04/24 17:00 KW (Rec: 11/05/24 17:28 KW Laptop) Manual Assessments Soft Tissue Assessment Soft Tissue Mobility tender to palp, retro calc achilles bursae Assessment Joint Mobility Assessment Joint Mobility mid foot restriction R Assessment PT-OP-G Mobility & Gait Start: 11/05/24 11:23 Freq: Status: Active Protocol: Document 11/04/24 17:00 KW (Rec: 11/05/24 17:28 KW Laptop) OP Gait Assessment Comments Gait Comments slight antalgic on R Stair Climbing Evaluation Comments Stair Climbing decreased eccentric control R LE vs L Comments PT-OP-J Posture/Palpation/Skin Start: 11/05/24 11:23 Freq: Status: Active Protocol: Document 11/04/24 17:00 KW (Rec: 11/05/24 17:28 KW Laptop) Posture Evaluation Comments Posture Comments wide based, anterior sway, hyper-extension B knees, increased R calc inversion PT-OP-K Range of Motion Start: 11/05/24 11:23 Freq: Status: Active Protocol: Document 11/04/24 17:00 KW (Rec: 11/05/24 17:28 KW Laptop) Lumbar Spine Range of Motion Lumbar Spine Active Comments forward bend fingers to mid barcenas Ankle and Foot Goniometric Range of Motion Ankle and Foot right Testing Position Prone Dorsiflexion with 5 Knee Flexed Dorsiflexion with 10 Knee Extended PT-OP-L Special Tests Start: 11/05/24 11:23 Freq: Status: Active Protocol: Document 11/04/24 17:00 KW (Rec: 11/05/24 17:28 KW Laptop) Special Tests Foot/Ankle Special Tests Talor Tilt Test Results negative Neural Special Tests- Lower Body Tinel Sign Test Results negative PT-OP-M Strength Start: 11/05/24 11:23 Freq: Status: Active Protocol: Document 11/04/24 17:00 KW (Rec: 11/05/24 17:28 KW Laptop) Trunk Strength Trunk Manual Muscle Testing Testing Position Supine Core Stabilization 3/5 Comments possible slight rectus diastasis Ankle/Foot Strength Ankle and Foot Manual Muscle Testing Right Dorsiflexion (L4) 5 Normal Plantarflexion (S1) 4+ Good+ Inversion 4 Good Eversion (S1) 5 Normal PT-OP-Q Treatments Start: 11/05/24 11:23 Freq: Status: Active Protocol: Document 11/04/24 17:00 KW (Rec: 11/05/24 17:28 KW Laptop) Manual Therapy Treatment Consent Patient gave verbal Yes consent for manual treatment Joint Mobilizations mid foot Joint mid foot, subtalar joint mobs Grade III Body Position Prone Reps/Duration 3 min Comments knee flexed and extedned Taping neutral calc Body Location R heel, heel lock taping Type of Tape leuko Skin Inspection good skin Comments achilles netural alignment Self-Care/Home Management Treatment Education Patient Education Body Mechanics,Joint Protection,Pain Management,Posture Other Education holding baby on right hip with weight shifted back into left heel PT-OP-T Assessment and Plan Start: 11/05/24 11:23 Freq: Status: Active Protocol: Document 11/04/24 17:00 KW (Rec: 11/05/24 17:28 KW Laptop) Physical Therapy Assessment Rehab Potential Rehabilitation Excellent Potential Evaluation Complexity Number of Personal 1-2 Factors/ Comorbidities Number of Body 1-2 Systems Impaired Clinical Stable Presentation at Evaluation Impairments Impairments Activity Tolerance,Balance,Functional Activities, Functional Mobility,Gait,Pain,Posture,Strength Goals LEFS score Impairment LEFS score 69/80 Short Term Goal (STG patient with LEFS score 75/80 ) STG Duration 6 weeks Two Impairment patient reports pain R heel Short Term Goal (STG no longer has R heel pain ) STG Duration 6 weeks One Impairment lack of HEP for CORE post- Short Term Goal (STG patient demonstrates Indep CORE stabilization program ) level 1-3, [place] STG Duration 6 weeks Assessment Summary Assessment patient 4 mo post , presents with R heel pain and weak post- CORE strength placing strain due to poor posture and body mechanics holding 20# baby. Patient will benefit from skilled PT to address deficits and increase strength in order to meet goals and return to her wt lifting and martial arts. Physical Therapy Plan Frequency and Duration Frequency of 2 Treatment Duration of 6 treatment (weeks) Plan of Care Start 11/04/24 Date Plan of Care End 02/04/25 Date Therapeutic Interventions Therapeutic Balance Training,Gait Training,Home Exercise Program, Interventions Joint Mobilizations,Manual Therapy,Orthotic/Prosthetic Management,Patient/Caregiver Education,Self-Care/Home Management,Soft Tissue Mobilization,Taping,Therapeutic Activities,Therapeutic Exercises Other Therapeutic post CORE strengthening Interventions Next Visit Focus/Plan Next Note Type Treatment Note Next Visit Plan assess for rectus diastasis assess CORE strength with level 1 stabilization
--- NOTE | 2024-11-05 17:29 | PT.OPPOC ---
Physical, Occupational & Speech Therapy At [facility] Current Diagnoses Pain in right foot (11/04/24) Visit Care Team Role Provider Type Kenya Garrison MD Attending Provider Physician Family Provider Primary Care Provider Referring Provider Specialty: Family Practice Obstetrics Address: [address] [place] [address], [facility] Email: [email or web address] Plan Of Care PT-OP-B Current Condition Start: 11/05/24 11:23 Freq: Status: Active Protocol: Document 11/04/24 17:00 KW (Rec: 11/05/24 17:28 KW Laptop) Current Condition History of Current Condition Onset Date july 2024 Current Complaints R heel pain History of Current R heel pain onset of July, approx 2 weeks post- Condition , first baby. Baby is now 4 mo old, 20#, holds him on R hip, feels her CORE is week so she doesn't feel she has the best posture. Treatment Goals Patient/Caregiver to get back to wt lifting and martial arts, currently Goals walking every morning with spouse and baby, reports it feels good to move. Prefers to go barefoot, minimalist shoes PT-OP-T Assessment and Plan Start: 11/05/24 11:23 Freq: Status: Active Protocol: Document 11/04/24 17:00 KW (Rec: 11/05/24 17:28 KW Laptop) Physical Therapy Assessment Rehab Potential Rehabilitation Excellent Potential Evaluation Complexity Number of Personal 1-2 Factors/ Comorbidities Number of Body 1-2 Systems Impaired Clinical Stable Presentation at Evaluation Impairments Impairments Activity Tolerance,Balance,Functional Activities, Functional Mobility,Gait,Pain,Posture,Strength Goals LEFS score Impairment LEFS score 69/80 Short Term Goal (STG patient with LEFS score 75/80 ) STG Duration 6 weeks Two Impairment patient reports pain R heel Short Term Goal (STG no longer has R heel pain ) STG Duration 6 weeks One Impairment lack of HEP for CORE post- Short Term Goal (STG patient demonstrates Indep CORE stabilization program ) level 1-3, [facility] STG Duration 6 weeks Assessment Summary Assessment patient 4 mo post , presents with R heel pain and weak post- CORE strength placing strain due to poor posture and body mechanics holding 20# baby. Patient will benefit from skilled PT to address deficits and increase strength in order to meet goals and return to her wt lifting and martial arts. Physical Therapy Plan Frequency and Duration Frequency of 2 Treatment Duration of 6 treatment (weeks) Plan of Care Start 11/04/24 Date Plan of Care End 02/04/25 Date Therapeutic Interventions Therapeutic Balance Training,Gait Training,Home Exercise Program, Interventions Joint Mobilizations,Manual Therapy,Orthotic/Prosthetic Management,Patient/Caregiver Education,Self-Care/Home Management,Soft Tissue Mobilization,Taping,Therapeutic Activities,Therapeutic Exercises Other Therapeutic post CORE strengthening Interventions Next Visit Focus/Plan Next Note Type Treatment Note Next Visit Plan assess for rectus diastasis assess CORE strength with level 1 stabilization Plan of Care Dates Plan of Care Start Date 11/04/24 Plan of Care End Date 02/04/25 Electronically Signed by: Jocelyn Adams, ALEXANDREA 11/05/24 3547 If you are in agreement with this Plan of Care, please return a signed and dated copy. I have reviewed this Plan of Care and certify that the skilled therapy services above are required to meet the patient?s needs. Physician Signature Date Printed Name and Credentials Clinical Instructor Signature Printed Name and Credentials
--- NOTE | 2024-11-06 09:51 | PT.OTN ---
Current Diagnoses Pain in right foot (11/06/24) Physical Therapy Treatment Note PT-OP-A Visit Information Start: 11/05/24 11:23 Freq: Status: Active Protocol: Document 11/06/24 09:02 KW (Rec: 11/06/24 09:51 KW Laptop) Out-Patient Physical Therapy Visit Information Visit Information Visit Type Treatment Note Visit Start Time 09:05 Visit Stop Time 09:45 Visit Number 2 Evaluation Information Evaluation Date 11/04/24 Precautions Precautions none PT-OP-B Current Condition Start: 11/05/24 11:23 Freq: Status: Active Protocol: Document 11/04/24 17:00 KW (Rec: 11/05/24 17:28 KW Laptop) Current Condition History of Current Condition Onset Date july 2024 Current Complaints R heel pain History of Current R heel pain onset of July, approx 2 weeks post- Condition , first baby. Baby is now 4 mo old, 20#, holds him on R hip, feels her CORE is week so she doesn't feel she has the best posture. Treatment Goals Patient/Caregiver to get back to [employer] and martial arts, currently Goals walking every morning with spouse and baby, reports it feels good to move. Prefers to go barefoot, minimalist shoes PT-OP-C Subjective Start: 11/05/24 11:23 Freq: Status: Active Protocol: Document 11/06/24 09:02 KW (Rec: 11/06/24 09:51 KW Laptop) OP-PT Pain Assessment Location right ankle Pain Location R heel/ankle Details Intensity 3 Scale Used Numeric (0 - 10) Description Aching,Burning,Pinching,Sharp Frequency Intermittent Pain Aggravating Position,Changing Position,ADL's,Activity,Exercise, Factors Standing,Walking,Stair Climbing,Bending,Lifting Pain Alleviating Inactivity,Position Factors PT-OP-D Balance Start: 11/05/24 11:23 Freq: Status: Active Protocol: Document 11/04/24 17:00 KW (Rec: 11/05/24 17:28 KW Laptop) OP-PT Balance Assessment Sitting Balance Static Sitting Normal Balance Ability Dynamic Sitting Normal Balance Ability Bass Fall Scale Copyright Permission PT-OP-E Functional Tests Start: 11/05/24 11:23 Freq: Status: Active Protocol: Document 11/04/24 17:00 KW (Rec: 11/05/24 17:28 KW Laptop) Functional Tests Single Leg Squat Test Score 10 PT-OP-F Manual Assessment Start: 11/05/24 11:23 Freq: Status: Active Protocol: Document 11/04/24 17:00 KW (Rec: 11/05/24 17:28 KW Laptop) Manual Assessments Soft Tissue Assessment Soft Tissue Mobility tender to palp, retro calc achilles bursae Assessment Joint Mobility Assessment Joint Mobility mid foot restriction R Assessment PT-OP-G Mobility & Gait Start: 11/05/24 11:23 Freq: Status: Active Protocol: Document 11/04/24 17:00 KW (Rec: 11/05/24 17:28 KW Laptop) OP Gait Assessment Comments Gait Comments slight antalgic on R Stair Climbing Evaluation Comments Stair Climbing decreased eccentric control R LE vs L Comments PT-OP-J Posture/Palpation/Skin Start: 11/05/24 11:23 Freq: Status: Active Protocol: Document 11/04/24 17:00 KW (Rec: 11/05/24 17:28 KW Laptop) Posture Evaluation Comments Posture Comments wide based, anterior sway, hyper-extension B knees, increased R calc inversion PT-OP-K Range of Motion Start: 11/05/24 11:23 Freq: Status: Active Protocol: Document 11/04/24 17:00 KW (Rec: 11/05/24 17:28 KW Laptop) Lumbar Spine Range of Motion Lumbar Spine Active Comments forward bend fingers to mid barcenas Ankle and Foot Goniometric Range of Motion Ankle and Foot right Testing Position Prone Dorsiflexion with 5 Knee Flexed Dorsiflexion with 10 Knee Extended PT-OP-L Special Tests Start: 11/05/24 11:23 Freq: Status: Active Protocol: Document 11/04/24 17:00 KW (Rec: 11/05/24 17:28 KW Laptop) Special Tests Foot/Ankle Special Tests Talor Tilt Test Results negative Neural Special Tests- Lower Body Tinel Sign Test Results negative PT-OP-M Strength Start: 11/05/24 11:23 Freq: Status: Active Protocol: Document 11/04/24 17:00 KW (Rec: 11/05/24 17:28 KW Laptop) Trunk Strength Trunk Manual Muscle Testing Testing Position Supine Core Stabilization 3/5 Comments possible slight rectus diastasis Ankle/Foot Strength Ankle and Foot Manual Muscle Testing Right Dorsiflexion (L4) 5 Normal Plantarflexion (S1) 4+ Good+ Inversion 4 Good Eversion (S1) 5 Normal PT-OP-Q Treatments Start: 11/05/24 11:23 Freq: Status: Active Protocol: Document 11/06/24 09:02 KW (Rec: 11/06/24 09:51 KW Laptop) Cardio Equipment Elliptical Duration (Minutes) 4 Other 2 forward, 2 backward Gym Equipment Shuttle Recovery squats Details B and single, drop heels off, heel raises Resistance 50# 37# for singles Therapeutic Exercises Supine Exercises CORE stabilization Supine Exercise Name supine CORE, level 1, marching, bent knee fall outs Reps/Minutes 1 min each Standing Exercises Gastroc soleus Standing Exercise ASHWINI stretch, drop heel off of stair stretch, flexed Name knee, straight knee Reps/Minutes 30 sec Manual Therapy Treatment Consent Patient gave verbal Yes consent for manual treatment Joint Mobilizations mid foot Joint mid foot, subtalar joint mobs Grade III Body Position Prone Reps/Duration 3 min Comments knee flexed and extedned Taping KT Tape Body Location KT heel lock neutral calc Body Location R heel, heel lock taping Type of Tape KT Skin Inspection good skin Comments achilles netural alignment Self-Care/Home Management Treatment Education Patient Education Body Mechanics,Joint Protection,Pain Management,Posture Other Education holding baby on right hip with weight shifted back into left heel - reviewed PT-OP-T Assessment and Plan Start: 11/05/24 11:23 Freq: Status: Active Protocol: Document 11/06/24 09:02 KW (Rec: 11/06/24 09:51 KW Laptop) Physical Therapy Assessment Rehab Potential Rehabilitation Excellent Potential Evaluation Complexity Number of Personal 1-2 Factors/ Comorbidities Number of Body 1-2 Systems Impaired Clinical Stable Presentation at Evaluation Impairments Impairments Activity Tolerance,Balance,Functional Activities, Functional Mobility,Gait,Pain,Posture,Strength Goals LEFS score Impairment LEFS score 69/80 Short Term Goal ([facility] patient with LEFS score 75/80 ) STG Duration 6 weeks Two Impairment patient reports pain R heel Short Term Goal (STG no longer has R heel pain ) STG Duration 6 weeks One Impairment lack of HEP for CORE post- Short Term Goal (STG patient demonstrates Indep CORE stabilization program ) level 1-3, [facility] STG Duration 6 weeks Assessment Summary Assessment recommend night splinting stretching felt good manual therapy helpful, deep tissue release quite weak thru CORE post . started level 1 Physical Therapy Plan Frequency and Duration Frequency of 2 Treatment Duration of 6 treatment (weeks) Plan of Care Start 11/04/24 Date Plan of Care End 02/04/25 Date Therapeutic Interventions Therapeutic Balance Training,Gait Training,Home Exercise Program, Interventions Joint Mobilizations,Manual Therapy,Orthotic/Prosthetic Management,Patient/Caregiver Education,Self-Care/Home Management,Soft Tissue Mobilization,Taping,Therapeutic Activities,Therapeutic Exercises Other Therapeutic post CORE strengthening Interventions Next Visit Focus/Plan Next Note Type Treatment Note Next Visit Plan CORE stabilization, start physioball, hamstring curls, bridging, LTR
--- NOTE | 2024-11-10 17:27 | PT.OTN ---
Current Diagnoses Pain in right foot (11/10/24) Physical Therapy Treatment Note PT-OP-A Visit Information Start: 11/05/24 11:23 Freq: Status: Active Protocol: Document 11/10/24 14:41 NBM (Rec: 11/10/24 17:26 NBM Laptop) Out-Patient Physical Therapy Visit Information Visit Information Visit Type Treatment Note Visit Start Time 14:37 Visit Stop Time 15:28 Visit Number 3 Number of [employer] Visits 1 Evaluation Information Evaluation Date 11/04/24 Precautions Precautions none PT-OP-B Current Condition Start: 11/05/24 11:23 Freq: Status: Active Protocol: Document 11/04/24 17:00 KW (Rec: 11/05/24 17:28 KW Laptop) Current Condition History of Current Condition Onset Date july 2024 Current Complaints R heel pain History of Current R heel pain onset of July, approx 2 weeks post- Condition , first baby. Baby is now 4 mo old, 20#, holds him on R hip, feels her CORE is week so she doesn't feel she has the best posture. Treatment Goals Patient/Caregiver to get back to wt lifting and martial arts, currently Goals walking every morning with spouse and baby, reports it feels good to move. Prefers to go barefoot, minimalist shoes PT-OP-C Subjective Start: 11/05/24 11:23 Freq: Status: Active Protocol: Document 11/10/24 14:41 NBM (Rec: 11/10/24 17:26 NBM Laptop) OP-PT Subjective Patient Comments Patient Comments Saloni reports her R heel was feeling uncomfortable since yesterday holding baby sleeping a lot post-vaccines. She thinks the KT tape has helped her foot. She would like more activities for incorporating 4-mo old 20# infant when he's awake. PT-OP-D Balance Start: 11/05/24 11:23 Freq: Status: Active Protocol: Document 11/04/24 17:00 KW (Rec: 11/05/24 17:28 KW Laptop) OP-PT Balance Assessment Sitting Balance Static Sitting Normal Balance Ability Dynamic Sitting Normal Balance Ability Bass Fall Scale Copyright Permission PT-OP-E Functional Tests Start: 11/05/24 11:23 Freq: Status: Active Protocol: Document 11/04/24 17:00 KW (Rec: 11/05/24 17:28 KW Laptop) Functional Tests Single Leg Squat Test Score 10 PT-OP-F Manual Assessment Start: 11/05/24 11:23 Freq: Status: Active Protocol: Document 11/04/24 17:00 KW (Rec: 11/05/24 17:28 KW Laptop) Manual Assessments Soft Tissue Assessment Soft Tissue Mobility tender to palp, retro calc achilles bursae Assessment Joint Mobility Assessment Joint Mobility mid foot restriction R Assessment PT-OP-G Mobility & Gait Start: 11/05/24 11:23 Freq: Status: Active Protocol: Document 11/04/24 17:00 KW (Rec: 11/05/24 17:28 KW Laptop) OP Gait Assessment Comments Gait Comments slight antalgic on R Stair Climbing Evaluation Comments Stair Climbing decreased eccentric control R LE vs L Comments PT-OP-J Posture/Palpation/Skin Start: 11/05/24 11:23 Freq: Status: Active Protocol: Document 11/04/24 17:00 KW (Rec: 11/05/24 17:28 KW Laptop) Posture Evaluation Comments Posture Comments wide based, anterior sway, hyper-extension B knees, increased R calc inversion PT-OP-K Range of Motion Start: 11/05/24 11:23 Freq: Status: Active Protocol: Document 11/04/24 17:00 KW (Rec: 11/05/24 17:28 KW Laptop) Lumbar Spine Range of Motion Lumbar Spine Active Comments forward bend fingers to mid barcenas Ankle and Foot Goniometric Range of Motion Ankle and Foot right Testing Position Prone Dorsiflexion with 5 Knee Flexed Dorsiflexion with 10 Knee Extended PT-OP-L Special Tests Start: 11/05/24 11:23 Freq: Status: Active Protocol: Document 11/04/24 17:00 KW (Rec: 11/05/24 17:28 KW Laptop) Special Tests Foot/Ankle Special Tests Talor Tilt Test Results negative Neural Special Tests- Lower Body Tinel Sign Test Results negative PT-OP-M Strength Start: 11/05/24 11:23 Freq: Status: Active Protocol: Document 11/04/24 17:00 KW (Rec: 11/05/24 17:28 KW Laptop) Trunk Strength Trunk Manual Muscle Testing Testing Position Supine Core Stabilization 3/5 Comments possible slight rectus diastasis Ankle/Foot Strength Ankle and Foot Manual Muscle Testing Right Dorsiflexion (L4) 5 Normal Plantarflexion (S1) 4+ Good+ Inversion 4 Good Eversion (S1) 5 Normal PT-OP-Q Treatments Start: 11/05/24 11:23 Freq: Status: Active Protocol: Document 11/10/24 14:41 NBM (Rec: 11/10/24 17:26 NBM Laptop) Therapeutic Exercises Supine Exercises CORE stabilization Supine Exercise Name [facility] lv 1 TrA w/ 1. bent knee fall outs 2. PPT 3. BKFO w/ PPT Equipment Used i/s pt in self-monitoring TrA medial to ASIS Reps/Minutes x10 ea Comments LBP resolves w/ tactile cues for PPT; cues for breath, smaller BKFO range Standing Exercises Wall squats Standing Exercise 1. wall squats 2. w/ 20# DB Name Reps/Minutes x10 ea Comments DB to simulate baby. Cues for PPT throughout, LE alignment, TrA and breath. STS Standing Exercise sit to stand Name Comments w/ cues for arch lift, TrA and breath Arch lifts Standing Exercise verbal i/s w/ demo for HEP Name Comments advised to discontinue if painful. Gastroc soleus Standing Exercise ASHWINI stretch, drop heel off of stair stretch, flexed Name knee, straight knee Reps/Minutes 30 sec Comments verbal review today Other Exercises quadruped Other Exercise Name 1. TrA 2. cat/cow (small range) 3. thread the needle Reps/Minutes 10 ea Comments emphasis on breath. 3. cues for scapular setting Manual Therapy Treatment Consent Patient gave verbal Yes consent for manual treatment Joint Mobilizations mid foot Joint R talocrural posterior glide Grade II Body Position Standing Reps/Duration x5 Comments cues knee past toes; painfree during and after. Taping KT Tape Body Location KT heel lock Skin Inspection intact, no irritation/rash present Comments 3 I - strips: Heel lock> Achilles t>Heel lock. Reviewed precautions w/ pt for removal at or prior to 5 days. neutral calc Body Location R heel, heel lock taping Type of Tape KT Skin Inspection intact Comments achilles neutral alignment Self-Care/Home Management Treatment Education Patient Education Body Mechanics,Joint Protection,Pain Management,Posture Other Education -Edu to pt w/ visual aids for TrA anatomy and interrelationship w/ pelvic floor and diaphragm, and importance of not breath holding. -I/s pt in self-monitoring TrA activation in hooklying for [facility] CORE Lvl HEP ex's. Activities Self-Care/Home Pt demos supine > long sit and sidelying> sitting EOB w Management / twisting through spine and breathholding. Activities i/s in log roll and sit to stand mechanics w/ TrA engagement and breath x3 ea. PT-OP-T Assessment and Plan Start: 11/05/24 11:23 Freq: Status: Active Protocol: Document 11/10/24 14:41 NBM (Rec: 11/10/24 17:26 NBM Laptop) Physical Therapy Assessment Goals LEFS score Impairment LEFS score 69/80 Short Term Goal (STG patient with LEFS score 75/80 ) STG Duration 6 weeks Two Impairment patient reports pain R heel Short Term Goal (STG no longer has R heel pain ) 11/10/24: Pt reports improved R heel pain w/ KT tape but avoids activities which cause pain such as stretching and moving knee past toes w/ heel down. STG Duration 6 weeks One Impairment lack of HEP for CORE post- Short Term Goal (STG patient demonstrates Indep CORE stabilization program ) level 1-3, [facility] STG Duration 6 weeks Assessment Summary Assessment HEP review of ex's to date w/ emphasis on core activation and breath (Goal 1). I/s in self-monitoring Transverse abdominis m. [facility] L[facility] exercises - heavy cueing for posterior pelvic tilt, which resolves LBP w/ alternating BKFO ex. Edu using visual aids of TrA m. anatomy and interrelationship w/ pelvic floor and diaphragm, and importance of not breath holding, which pt requires cues for throughout session but self-corrects towards end. Pt presents reporting R heel pain with dorsiflexion but is able to perform R talocrural posterior glide pain free and closed-chain dorsiflexion painfree following. Re-taped KT tape today. Added to HEP: Wall squats w/ 20# to simulate holding baby, w/ emphasis on LE alignment, TrA activation, breathwork, and maintaining PPT at wall.
--- NOTE | 2024-11-12 16:06 | PT.OTN ---
Current Diagnoses Pain in right foot (11/12/24) Physical Therapy Treatment Note PT-OP-A Visit Information Start: 11/05/24 11:23 Freq: Status: Active Protocol: Document 11/12/24 15:30 KW (Rec: 11/12/24 16:06 KW Laptop) Out-Patient Physical Therapy Visit Information Visit Information Visit Type Treatment Note Visit Start Time 15:15 Visit Stop Time 16:00 Visit Number 4 Number of [employer]PERATOR Visits 2 Evaluation Information Evaluation Date 11/04/24 Precautions Precautions none PT-OP-B Current Condition Start: 11/05/24 11:23 Freq: Status: Active Protocol: Document 11/04/24 17:00 KW (Rec: 11/05/24 17:28 KW Laptop) Current Condition History of Current Condition Onset Date july 2024 Current Complaints R heel pain History of Current R heel pain onset of July, approx 2 weeks post- Condition , first baby. Baby is now 4 mo old, 20#, holds him on R hip, feels her CORE is week so she doesn't feel she has the best posture. Treatment Goals Patient/Caregiver to get back to [employer] lifting and martial arts, currently Goals walking every morning with spouse and baby, reports it feels good to move. Prefers to go barefoot, minimalist shoes PT-OP-C Subjective Start: 11/05/24 11:23 Freq: Status: Active Protocol: Document 11/12/24 15:30 KW (Rec: 11/12/24 16:06 KW Laptop) OP-PT Subjective Patient Comments Patient Comments not sleeping well due to baby sleep schedule Hasn't been able to do exercises at home OP-PT Pain Assessment Location right ankle Pain Location R heel/ankle Details Intensity 3 Scale Used Numeric (0 - 10) Description Aching,Burning,Pinching,Sharp Frequency Intermittent Pain Aggravating Position,Changing Position,ADL's,Activity,Exercise, Factors Standing,Walking,Stair Climbing,Bending,Lifting Pain Alleviating Inactivity,Position Factors PT-OP-D Balance Start: 11/05/24 11:23 Freq: Status: Active Protocol: Document 11/04/24 17:00 KW (Rec: 11/05/24 17:28 KW Laptop) OP-PT Balance Assessment Sitting Balance Static Sitting Normal Balance Ability Dynamic Sitting Normal Balance Ability Bass Fall Scale Copyright Permission PT-OP-E Functional Tests Start: 11/05/24 11:23 Freq: Status: Active Protocol: Document 11/04/24 17:00 KW (Rec: 11/05/24 17:28 KW Laptop) Functional Tests Single Leg Squat Test Score 10 PT-OP-F Manual Assessment Start: 11/05/24 11:23 Freq: Status: Active Protocol: Document 11/04/24 17:00 KW (Rec: 11/05/24 17:28 KW Laptop) Manual Assessments Soft Tissue Assessment Soft Tissue Mobility tender to palp, retro calc achilles bursae Assessment Joint Mobility Assessment Joint Mobility mid foot restriction R Assessment PT-OP-G Mobility & Gait Start: 11/05/24 11:23 Freq: Status: Active Protocol: Document 11/04/24 17:00 KW (Rec: 11/05/24 17:28 KW Laptop) OP Gait Assessment Comments Gait Comments slight antalgic on R Stair Climbing Evaluation Comments Stair Climbing decreased eccentric control R LE vs L Comments PT-OP-J Posture/Palpation/Skin Start: 11/05/24 11:23 Freq: Status: Active Protocol: Document 11/04/24 17:00 KW (Rec: 11/05/24 17:28 KW Laptop) Posture Evaluation Comments Posture Comments wide based, anterior sway, hyper-extension B knees, increased R calc inversion PT-OP-K Range of Motion Start: 11/05/24 11:23 Freq: Status: Active Protocol: Document 11/04/24 17:00 KW (Rec: 11/05/24 17:28 KW Laptop) Lumbar Spine Range of Motion Lumbar Spine Active Comments forward bend fingers to mid barcenas Ankle and Foot Goniometric Range of Motion Ankle and Foot right Testing Position Prone Dorsiflexion with 5 Knee Flexed Dorsiflexion with 10 Knee Extended PT-OP-L Special Tests Start: 11/05/24 11:23 Freq: Status: Active Protocol: Document 11/04/24 17:00 KW (Rec: 11/05/24 17:28 KW Laptop) Special Tests Foot/Ankle Special Tests Talor Tilt Test Results negative Neural Special Tests- Lower Body Tinel Sign Test Results negative PT-OP-M Strength Start: 11/05/24 11:23 Freq: Status: Active Protocol: Document 11/04/24 17:00 KW (Rec: 11/05/24 17:28 KW Laptop) Trunk Strength Trunk Manual Muscle Testing Testing Position Supine Core Stabilization 3/5 Comments possible slight rectus diastasis Ankle/Foot Strength Ankle and Foot Manual Muscle Testing Right Dorsiflexion (L4) 5 Normal Plantarflexion (S1) 4+ Good+ Inversion 4 Good Eversion (S1) 5 Normal PT-OP-Q Treatments Start: 11/05/24 11:23 Freq: Status: Active Protocol: Document 11/12/24 15:30 KW (Rec: 11/12/24 16:06 KW Laptop) Cardio Equipment Elliptical Duration (Minutes) 4 Other 2 forward, 2 backward Gym Equipment Shuttle Recovery squats Details B and single, drop heels off, heel raises Resistance 50# 37# for singles Therapeutic Ball bridge Exercise Details ball bridge with exhale Ball Size/Color red Body Position Supine Reps/Duration 10 Comments hamstring curls, LTR x 10 each as well Therapeutic Exercises Supine Exercises CORE stabilization Supine Exercise Name [facility] lvl 1 TrA w/ 1. bent knee fall outs 2. PPT 3. BKFO w/ PPT Equipment Used i/s pt in self-monitoring TrA medial to ASIS Reps/Minutes x10 ea Comments LBP resolves w/ tactile cues for PPT; cues for breath, smaller BKFO range Standing Exercises Wall squats Standing Exercise 1. wall squats 2. w/ 20# DB Name Reps/Minutes x10 ea Comments DB to simulate baby. Cues for PPT throughout, LE alignment, TrA and breath. STS Standing Exercise sit to stand Name Comments w/ cues for arch lift, TrA and breath Gastroc soleus Standing Exercise ASHWINI stretch, drop heel off of stair stretch, flexed Name knee, straight knee Reps/Minutes 30 sec Comments verbal review today Other Exercises quadruped Other Exercise Name 1. TrA 2. cat/cow (small range) 3. thread the needle Reps/Minutes 10 ea Comments emphasis on breath. 3. cues for scapular setting Manual Therapy Treatment Consent Patient gave verbal Yes consent for manual treatment Joint Mobilizations mid foot Joint R talocrural posterior glide Grade II Body Position Standing Reps/Duration x5 Comments cues knee past toes; painfree during and after. Taping KT Tape Body Location KT heel lock Skin Inspection intact, no irritation/rash present Comments 3 I - strips: Heel lock> Achilles t>Heel lock. Reviewed precautions w/ pt for removal at or prior to 5 days. Self-Care/Home Management Treatment Education Patient Education Body Mechanics,Joint Protection,Pain Management,Posture Other Education -Edu to pt w/ visual aids for TrA anatomy and interrelationship w/ pelvic floor and diaphragm, and importance of not breath holding. -I/s pt in self-monitoring TrA activation in hooklying for performance of [facility] CORE Lvl HEP ex's. PT-OP-T Assessment and Plan Start: 11/05/24 11:23 Freq: Status: Active Protocol: Document 11/12/24 15:30 KW (Rec: 11/12/24 16:06 KW Laptop) Physical Therapy Assessment Rehab Potential Rehabilitation Excellent Potential Evaluation Complexity Number of Personal 1-2 Factors/ Comorbidities Number of Body 1-2 Systems Impaired Clinical Stable Presentation at Evaluation Impairments Impairments Activity Tolerance,Balance,Functional Activities, Functional Mobility,Gait,Pain,Posture,Strength Goals LEFS score Impairment LEFS score 69/80 Short Term Goal (STG patient with LEFS score 75/80 ) STG Duration 6 weeks Two Impairment patient reports pain R heel Short Term Goal (STG no longer has R heel pain ) 11/10/24: Pt reports improved R heel pain w/ KT tape but avoids activities which cause pain such as stretching and moving knee past toes w/ heel down. STG Duration 6 weeks One Impairment lack of HEP for CORE post- Short Term Goal (STG patient demonstrates Indep CORE stabilization program ) level 1-3, [facility] STG Duration 6 weeks Assessment Summary Assessment much improved CORE recruitment consider physioball for home Physical Therapy Plan Frequency and Duration Frequency of 1 Treatment Duration of 12 treatment (weeks) Plan of Care Start 11/04/24 Date Plan of Care End 02/04/25 Date Therapeutic Interventions Therapeutic Balance Training,Gait Training,Home Exercise Program, Interventions Joint Mobilizations,Manual Therapy,Orthotic/Prosthetic Management,Patient/Caregiver Education,Self-Care/Home Management,Soft Tissue Mobilization,Taping,Therapeutic Activities,Therapeutic Exercises Other Therapeutic post CORE strengthening Interventions Next Visit Focus/Plan Next Note Type Treatment Note Next Visit Plan CORE stabilization, start physioball, hamstring curls, bridging, LTR
--- NOTE | 2024-12-09 17:50 | PT.OTN ---
Current Diagnoses Pain in right foot (12/09/24) Physical Therapy Treatment Note PT-OP-A Visit Information Start: 11/05/24 11:23 Freq: Status: Active Protocol: Document 12/09/24 17:05 KW (Rec: 12/09/24 17:11 KW Laptop) Out-Patient Physical Therapy Visit Information Visit Information Visit Type Progress Note Visit Start Time 17:00 Visit Stop Time 17:40 Visit Number 5 Evaluation Information Evaluation Date 11/04/24 Precautions Precautions none PT-OP-B Current Condition Start: 11/05/24 11:23 Freq: Status: Active Protocol: Document 12/09/24 17:05 KW (Rec: 12/09/24 17:11 KW Laptop) Current Condition History of Current Condition Onset Date july 2024 Current Complaints R heel pain History of Current R heel pain onset of July, approx 2 weeks post- Condition , first baby. Baby is now 4 mo old, 20#, holds him on R hip, feels her CORE is week so she doesn't feel she has the best posture. PT-OP-C Subjective Start: 11/05/24 11:23 Freq: Status: Active Protocol: Document 12/09/24 17:05 KW (Rec: 12/09/24 17:11 KW Laptop) OP-PT Subjective Patient Comments Patient Comments heel pain comes and goes low back is better Patient Questionnaires Lower Extremity Functional Scale LEFS Score 73 LEFS Impairment 1 to 19% Impaired (Score 63-79) OP-PT Pain Assessment Location right ankle Pain Location R heel/ankle Details Scale Used Numeric (0 - 10) Description Aching,Burning,Pinching,Sharp Frequency Intermittent Pain Alleviating Inactivity,Position Factors Pain Aggravating Position,Changing Position,ADL's,Activity,Exercise, Factors Standing,Walking,Stair Climbing,Bending,Lifting PT-OP-D Balance Start: 11/05/24 11:23 Freq: Status: Active Protocol: Document 11/04/24 17:00 KW (Rec: 11/05/24 17:28 KW Laptop) OP-PT Balance Assessment Sitting Balance Static Sitting Normal Balance Ability Dynamic Sitting Normal Balance Ability Bass Fall Scale Copyright Permission PT-OP-E Functional Tests Start: 11/05/24 11:23 Freq: Status: Active Protocol: Document 12/09/24 17:05 KW (Rec: 12/09/24 17:11 KW Laptop) Functional Tests Single Leg Squat Test Score 10 PT-OP-F Manual Assessment Start: 11/05/24 11:23 Freq: Status: Active Protocol: Document 12/09/24 17:05 KW (Rec: 12/09/24 17:11 KW Laptop) Manual Assessments Soft Tissue Assessment Soft Tissue Mobility tender to palp, retro calc achilles bursae - resolved Assessment Joint Mobility Assessment Joint Mobility mid foot restriction R - resolved Assessment PT-OP-G Mobility & Gait Start: 11/05/24 11:23 Freq: Status: Active Protocol: Document 12/09/24 17:05 KW (Rec: 12/09/24 17:11 KW Laptop) OP Gait Assessment Comments Gait Comments slight antalgic on R - resolved Stair Climbing Evaluation Comments Stair Climbing decreased eccentric control R LE vs L - resolved Comments PT-OP-J Posture/Palpation/Skin Start: 11/05/24 11:23 Freq: Status: Active Protocol: Document 12/09/24 17:05 KW (Rec: 12/09/24 17:11 KW Laptop) Posture Evaluation Comments Posture Comments wide based, anterior sway, hyper-extension B knees, increased R calc inversion - improving PT-OP-K Range of Motion Start: 11/05/24 11:23 Freq: Status: Active Protocol: Document 12/09/24 17:05 KW (Rec: 12/09/24 17:11 KW Laptop) Lumbar Spine Range of Motion Lumbar Spine Active Comments forward bend fingers to mid barcenas - now to top of feet Ankle and Foot Goniometric Range of Motion Ankle and Foot right Testing Position Prone Dorsiflexion with 10 Knee Flexed Dorsiflexion with 15 Knee Extended PT-OP-L Special Tests Start: 11/05/24 11:23 Freq: Status: Active Protocol: Document 12/09/24 17:05 KW (Rec: 12/09/24 17:11 KW Laptop) Special Tests Foot/Ankle Special Tests Talor Tilt Test Results negative Neural Special Tests- Lower Body Tinel Sign Test Results negative PT-OP-M Strength Start: 11/05/24 11:23 Freq: Status: Active Protocol: Document 12/09/24 17:05 KW (Rec: 12/09/24 17:11 KW Laptop) Trunk Strength Trunk Manual Muscle Testing Testing Position Supine Core Stabilization 4/5 Comments possible slight rectus diastasis - improving Ankle/Foot Strength Ankle and Foot Manual Muscle Testing Right Dorsiflexion (L4) 5 Normal Plantarflexion (S1) 4+ Good+ Inversion 4 Good Eversion (S1) 5 Normal PT-OP-Q Treatments Start: 11/05/24 11:23 Freq: Status: Active Protocol: Document 12/09/24 17:05 KW (Rec: 12/09/24 17:11 KW Laptop) Cardio Equipment Treadmill Duration (Minutes) 10 Speed 2.5 Gym Equipment Shuttle Recovery squats Details B and single, drop heels off, heel raises Resistance 50# 37# for singles Therapeutic Ball bridge Exercise Details ball bridge with exhale Ball Size/Color red Body Position Supine Reps/Duration 10 Comments hamstring curls, LTR x 10 each as well Therapeutic Exercises Supine Exercises CORE stabilization Supine Exercise Name [facility] lvl 2 TrA w/ 1. bent knee fall outs 2. PPT 3. BKFO w/ PPT Equipment Used i/s pt in self-monitoring TrA medial to ASIS Reps/Minutes x10 ea Comments LBP resolves w/ tactile cues for PPT; cues for breath, smaller BKFO range Standing Exercises Wall squats Standing Exercise 1. wall squats 2. w/ 20# DB Name Reps/Minutes x10 ea Comments DB to simulate baby. Cues for PPT throughout, LE alignment, TrA and breath. STS Standing Exercise sit to stand Name Comments w/ cues for arch lift, TrA and breath Arch lifts Standing Exercise verbal i/s w/ demo for HEP Name Comments advised to discontinue if painful. Gastroc soleus Standing Exercise ASHWINI stretch, drop heel off of stair stretch, flexed Name knee, straight knee Reps/Minutes 30 sec Comments verbal review today Other Exercises quadruped Other Exercise Name 1. TrA 2. cat/cow (small range) 3. thread the needle Reps/Minutes 10 ea Comments emphasis on breath. 3. cues for scapular setting Manual Therapy Treatment Consent Patient gave verbal Yes consent for manual treatment Joint Mobilizations mid foot Joint R talocrural posterior glide Grade II Body Position Standing Reps/Duration x5 Comments cues knee past toes; painfree during and after. Taping KT Tape Body Location KT heel lock Skin Inspection intact, no irritation/rash present Comments 3 I - strips: Heel lock> Achilles t>Heel lock. Reviewed precautions w/ pt for removal at or prior to 5 days. neutral calc Body Location R heel, heel lock taping Type of Tape KT Skin Inspection intact Comments achilles neutral alignment Self-Care/Home Management Treatment Education Patient Education Body Mechanics,Joint Protection,Pain Management,Posture Other Education shoe wear, handouts issued. influence on neutral alignment Activities Self-Care/Home Pt demos supine > long sit and sidelying> sitting EOB w Management / twisting through spine and breathholding. Activities i/s in log roll and sit to stand mechanics w/ TrA engagement and breath x3 ea. PT-OP-T Assessment and Plan Start: 11/05/24 11:23 Freq: Status: Active Protocol: Document 12/09/24 17:05 KW (Rec: 12/09/24 17:11 KW Laptop) Physical Therapy Assessment Rehab Potential Rehabilitation Excellent Potential Evaluation Complexity Number of Personal 1-2 Factors/ Comorbidities Number of Body 1-2 Systems Impaired Clinical Stable Presentation at Evaluation Impairments Impairments Activity Tolerance,Balance,Functional Activities, Functional Mobility,Gait,Pain,Posture,Strength Goals LEFS score Impairment LEFS score 69/80 Short Term Goal (STG patient with LEFS score 75/80 ) STG Duration 6 weeks Two Impairment patient reports pain R heel Short Term Goal (STG no longer has R heel pain ) 11/10/24: Pt reports improved R heel pain w/ KT tape but avoids activities which cause pain such as stretching and moving knee past toes w/ heel down. STG Duration 6 weeks One Impairment lack of HEP for CORE post- Short Term Goal (STG patient demonstrates Indep CORE stabilization program ) [facility] Duration 6 weeks Assessment Summary Assessment recommend night splint - needs to find tonight Physical Therapy Plan Frequency and Duration Frequency of 1 Treatment Duration of 12 treatment (weeks) Plan of Care Start 11/04/24 Date Plan of Care End 02/04/25 Date Therapeutic Interventions Therapeutic Balance Training,Gait Training,Home Exercise Program, Interventions Joint Mobilizations,Manual Therapy,Orthotic/Prosthetic Management,Patient/Caregiver Education,Self-Care/Home Management,Soft Tissue Mobilization,Taping,Therapeutic Activities,Therapeutic Exercises Other Therapeutic post CORE strengthening Interventions Next Visit Focus/Plan Next Note Type Treatment Note Next Visit Plan CORE stabilization, start physioball, hamstring curls, bridging, LTR
--- NOTE | 2024-12-16 16:23 | PT.OTN ---
Current Diagnoses Pain in right foot (12/16/24) Physical Therapy Treatment Note PT OP: Lower Back/Lower Extremity Start: 12/16/24 16:18 Freq: Status: Active Protocol: Document 12/16/24 16:19 KW (Rec: 12/16/24 16:23 KW Laptop) Out-Patient Physical Therapy Visit Information Visit Information Visit Type Progress Note Visit Start Time 16:15 Visit Stop Time 16:55 Visit Number 6 Evaluation Information Evaluation Date 11/04/24 Precautions Precautions none OP-PT Subjective Patient Comments Patient Comments heel pain comes and goes low back is better ankle is better brings in bag of tennis shoes/walking shoes Cardio Equipment Elliptical Duration (Minutes) 6 Other 3/3 Gym Equipment Shuttle Recovery squats Details B and single, drop heels off, heel raises Resistance 67# 37# for single Shuttle Balance red Comments AP/ML Therapeutic Ball bridge Exercise Details ball bridge with exhale Ball Size/Color red Body Position Supine Reps/Duration 10 Comments hamstring curls, LTR x 10 each as well Manual Therapy Treatment Consent Patient gave verbal Yes consent for manual treatment Joint Mobilizations mid foot Joint R talocrural posterior glide Grade II Body Position Standing Reps/Duration x5 Comments cues knee past toes; painfree during and after. Taping KT Tape Body Location KT heel lock Skin Inspection intact, no irritation/rash present Comments 3 I - strips: Heel lock> Achilles t>Heel lock. Reviewed precautions w/ pt for removal at or prior to 5 days. neutral calc Body Location R heel, heel lock taping Type of Tape KT Skin Inspection intact Comments achilles neutral alignment Physical Therapy Assessment Goals LEFS score Impairment LEFS score 69/80 Short Term Goal (STG patient with LEFS score 75/80 ) STG Duration 6 weeks Two Impairment patient reports pain R heel Short Term Goal (STG no longer has R heel pain ) 11/10/24: Pt reports improved R heel pain w/ KT tape but avoids activities which cause pain such as stretching and moving knee past toes w/ heel down. STG Duration 6 weeks One Impairment lack of HEP for CORE post- Short Term Goal (STG patient demonstrates Indep CORE stabilization program ) level 1-3, [facility] - level II STG Duration 6 weeks Assessment Summary Assessment recommend night splint - needs to find tonight Physical Therapy Plan Frequency and Duration Frequency of 1 Treatment Duration of 12 treatment (weeks) Plan of Care Start 11/04/24 Date Plan of Care End 02/04/25 Date Therapeutic Interventions Therapeutic Balance Training,Gait Training,Home Exercise Program, Interventions Joint Mobilizations,Manual Therapy,Orthotic/Prosthetic Management,Patient/Caregiver Education,Self-Care/Home Management,Soft Tissue Mobilization,Taping,Therapeutic Activities,Therapeutic Exercises Other Therapeutic post CORE strengthening Interventions Next Visit Focus/Plan Next Note Type Treatment Note Next Visit Plan CORE stabilization, start physioball, hamstring curls, bridging, LTR
--- NOTE | 2025-04-22 14:31 | PT.OPDS ---
Current Diagnoses Pain in right foot (12/16/24) Visit Care Team Role Provider Type Kenya Garrison MD Attending Provider Physician Family Provider Primary Care Provider Referring Provider Specialty: Family Practice Obstetrics Address: [address] [place] [address], [id number] Email: [email or web address] Visit Number Visit Number 6 Discharge Summary PT OP: Lower Back/Lower Extremity Start: 12/16/24 16:18 Freq: Status: Active Protocol: Document 04/22/25 14:29 VIRGIE (Rec: 04/22/25 14:30 VIRGIE [id number]) Out-Patient Physical Therapy Visit Information Visit Information Visit Type Discharge Summary Physical Therapy Assessment Assessment Summary Assessment Patient has not been seen in PT in over 90 days and will be discharged at this time due to lack of follow up and a lack of plan documented in chart.
== END 2025-04-27 09:57 | disposition home or self-care (01) ==
LOC: PHYS 16:15
PROVIDERS: Family Provider Student in an Organized Health Care Education/Training Program; PCP Student in an Organized Health Care Education/Training Program; Referring Provider Student in an Organized Health Care Education/Training Program; Visit Provider Student in an Organized Health Care Education/Training Program
DX: M79.671 Pain in right foot (principal)
CPT/HCPCS: 97110; 97112; 97140; 97161; 97535